=== PATIENT | male | born 1945 | race Caucasian/White ===

== ENCOUNTER 2020-06-28 23:54 | Emergency (ER) | payer MEDICARE, OTHER ==
[~2020-06-28] VITALS: Ht 177.8 cm; Wt 89.5 kg
[2020-06-29] MEDS ORDERED: normal saline 1000ML IV soln IVB ONE
[2020-06-29] MEDS: dextrose 5%-normal saline 1,000 ML IV SCH ×2 (00:20→02:43)
--- NOTE | 2020-06-29 00:20 | NUR ---
MD AWARE OF GLUCOSE 66 FROM 107 EMS. D5NS ORDERED INSTEAD OF NS BOLUS
[2020-06-29 00:24] LABS: BASOPHILS # (AUTO) 0.1 X10'3 (0-0.2); BASOPHILS % (AUTO) 0.7 % (0-1); EOSINOPHILS # (AUTO) 0.3 X10'3 (0-0.9); EOSINOPHILS % (AUTO) 4.3 % (0-6); HEMATOCRIT 37.2 % (42.0-52.0); HEMOGLOBIN 12.8 g/dl (14.0-17.9); MEAN CORPUSCULAR HEMOGLOBIN 31.4 PG (27.0-31.0); MEAN CORPUSCULAR HGB CONC 34.3 g/dL (33.0-36.5); MEAN CORPUSCULAR VOLUME 91.4 FL (78-98); MEAN PLATELET VOLUME 7.8 FL (7.4-10.4); MONOCYTES # (AUTO) 0.7 X10'3 (0-0.9); MONOCYTES % (AUTO) 9.6 % (2-12); NEUTROPHILS # (AUTO) 3.4 X10'3 (1.8-7.7); NEUTROPHILS % (AUTO) 45.4 % (42-75); PLATELET COUNT 297 X10'3 (140-440); RED BLOOD COUNT 4.07 X10'6 (4.70-6.10); WHITE BLOOD COUNT 7.4 X10'3 (4.5-11.0)
[2020-06-29 00:25] LABS: ALANINE AMINOTRANSFERASE 73 U/L (12-78); ALBUMIN 3.5 G/DL (3.4-5.0); ALBUMIN/GLOBULIN RATIO 1.3 (1.1-1.5); ALKALINE PHOSPHATASE 94 IU/L (46-116); ANION GAP 10 (8-16); ASPARTATE AMINO TRANSFERASE 46 U/L (10-37); BILIRUBIN,TOTAL 0.5 MG/DL (0.1-1.0); BLOOD UREA NITROGEN 8 MG/DL (7-18); BUN/CREATININE RATIO 8.2 (5.4-32.0); CALCIUM 8.4 MG/DL (8.5-10.1); CHLORIDE 106 MMOL/L (99-107); CREATININE 0.97 MG/DL (0.60-1.10); GLUCOSE 78 MG/DL (70-104); POTASSIUM 3.6 MMOL/L (3.5-5.1); SODIUM 141 MMOL/L (135-145); TOTAL CARBON DIOXIDE 25.2 MMOL/L (24-32); TOTAL PROTEIN 6.3 G/DL (6.4-8.2); eGFR 76 ML/MIN
[2020-06-29 00:28] LABS: TROPONIN I < 0.04 NG/ML (0.0-0.05)
[2020-06-29 00:29] LABS: ETHANOL < 0.010 GM/DL (0.0-0.010)
--- NOTE | 2020-06-29 01:20 | NUR ---
pt pulled iv out, new one initiated, RFA 20g. asypmtomatic
[2020-06-29 01:23] LABS: CLARITY,URINE CLEAR (Clear); COLOR,URINE YELLOW (Yellow); GLUCOSE, URINE 100 mg/dl (Neg); KETONES,URINE NEGATIVE (Neg); LEUKOCYTE ESTERASE ,URINE TRACE (Neg); NITRITES, URINE NEGATIVE (Neg); OCCULT BLOOD,URINE MODERATE (Neg); PH,URINE 5.5 (4.8-8.0); PROTEIN,URINE NEGATIVE (Neg); UROBILINOGEN,URINE 0.2 E.U/dL (0.2-1.0)
[2020-06-29 01:28] LABS: UA COLLECTION TYPE CLN CATCH MIDSTREAM
[2020-06-29 01:38] LABS: BACTERIA,URINE FEW /HPF (Neg); RBC,URINE 0-2 /HPF (0-2); SQUAMOUS EPITHELIAL CELL,UR FEW /LPF (FEW); WBC,URINE 0-4 /HPF (0-4)
[2020-06-29 01:55] LABS: URINE AMPHETAMINE SCREEN NEGATIVE (Neg); URINE BARBITUATE SCREEN NEGATIVE (Neg); URINE BENZODIAZEPINES SCREEN NEGATIVE (Neg); URINE CANNABINOID SCREEN NEGATIVE (Neg); URINE COCAINE SCREEN NEGATIVE (Neg); URINE METHADONE SCREEN NEGATIVE (Neg); URINE OPIATE SCREEN NEGATIVE (Neg); URINE PHENCYCLIDINE SCREEN NEGATIVE (Neg)
[2020-06-29] MEDS ORDERED: CefTRIAXone/D5W-Rocephin 1gm 50 ML IV ONE (02:30)
[2020-06-29] MEDS ORDERED: CEPH-571 PO (02:31)
[2020-06-29 03:40] VITALS: BP 107/70
== END 2020-06-29 03:41 | disposition home or self-care (01) ==
LOC: ER 23:54
DX: N39.0 Urinary tract infection, site not specified (principal); E11.9 Type 2 diabetes mellitus without complications; Z88.8 Allergy status to other drugs, medicaments and biological substances; Z79.899 Other long term (current) drug therapy
CPT/HCPCS: 36415; 70450; 71045; 80053; 80305; 80320; 81001; 82948; 84484; 85025; 87088; 93005; 96361; 96365; 99285; J0696; J7042

== ENCOUNTER 2025-06-05 12:18 | Inpatient (IN) | payer MEDICARE, OTHER ==
[~2025-06-05] VITALS: Ht 180.3 cm; Wt 82.0 kg
[~2025-06-05 12:18] MED LIST: CEPH-571 PO
[2025-06-05 14:40] VITALS: BP 100/65; PULSE 75; RESP 13; TEMP 97.5; O2SAT 99
[2025-06-05] MEDS ORDERED: potassium Cl 40MEQ/1/2NS 520ml 520 ML IV PRN (16:10)
[2025-06-05] MEDS ORDERED: mag hydrox/Alum hydrox/simeth 30ml oral suspension PO PRN (16:10)
[2025-06-05] MEDS ORDERED: magnesium hydroxide 30ml (MOM) UD suspension PO PRN (16:10)
[2025-06-05] MEDS ORDERED: magnesium Cl slow-release 64mg tablet PO PRN (16:10)
[2025-06-05] MEDS ORDERED: potassium Cl 20 mEq SR tablet PO PRN ×2 (16:10)
[2025-06-05] MEDS ORDERED: magnesium sulf-water 2g/50mL 50 ML IV PRN (16:10)
[2025-06-05] MEDS ORDERED: magnesium sulf-water 4G/100mL 100 ML IV PRN (16:10)
[2025-06-05] MEDS: PERFLUTREN PROTEIN-A MICROSPHR (Optison) 0.22 MG/ML 3ML VIAL IV ONE (16:15)
--- NOTE | 2025-06-05 16:34 | HISTORY AND PHYSICAL-Residence ---
History & Physical Providers to CC Resident Creating Document: TOMIRUTHANNES, MICHELE ~ History of Present Illness Reason for Admit\Complaint: Shortness of breath History of Present Illness 80-year-old male with history of congestive heart failure, chronic AFib, ischemic cardiomyopathy, CAD s/p CABG, aortic stenosis, diabetes mellitus type 2, COPD was transferred from [place] for management of acute on chronic systolic heart failure, as they did not have cardiology. He states that he went to [facility] as he was very weak and had shortness of breath. He has had shortness of breath for the past 3 months which has progressively worsened. He states that he uses BiPAP at home for COPD. He states having chronic dry cough. He reports having the flu for 2 weeks around 2 months ago. He denies swelling of legs, chest pain, palpitations. He can not walk more than 1 block without having shortness of breath and he endorses orthopnea. He denies abdominal pain, abdominal distention, nausea, vomiting, constipation, diarrhea, changes in appetite, fever, chills. 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 at the moment He lives at home with his and daughter He ambulates with the help of a cane Allergies: Coded Allergies: pregabalin (Unverified Allergy, Mild, 06/07/25) gabapentin (Verified Allergy, Unknown, 06/29/20) losartan (Verified Allergy, Unknown, 06/29/20) chlorhexidine (Unverified Adverse Reaction, Mild, 06/07/25) Uncoded Allergies: SALT PILLS (Allergy, Unknown, 06/29/20) Home Medications Home Medications Active Keflex (Cephalexin) 250 Mg Capsule 1 Cap PO BID 7 Days Past Medical History Past Medical History Congestive heart failure, LVEF of 50-55% in October 2023 Ischemic cardiomyopathy CAD s/p CABG Chronic AFib COPD Aortic stenosis Depression/anxiety Diabetes mellitus type 2 CKD Abdominal aortic aneurysm Vertigo Past Surgical History Surgical History Comment Sleeve gastrectomy Bilateral knee replacement Carpal tunnel surgery CAD s/p CABG 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 Past Social History Social History Comment He quit smoking 24 years ago, he used to smoke 1 pack a day for 40 years He denies alcohol and recreational drug use 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 Gastrointestinal: No Abdominal pain, vomiting,nausea,constipation,diarrhea. Normal appetite. No hematemesis or melena. Musculoskeletal: No pedal edema, No pain in bilateral lower legs. Integumentary: No change in skin, hair, nails. No swelling, bruising, abrasions Neurologic: No headache, neck pain, numbness or tingling of the extremities, Psychiatric: No delusions, depression, loss of interest in normal activity or change in sleep pattern, hallucinations, suicidal ideations Endocrine: Reports weakness, No polydipsia, polyuria, change in appetite, heat or cold intolerance, sweating, dry skin Hematological: No bleeding, petechiae, bruising Allergies: No asthma or urticaria Exam Vitals: Vital Signs Date Time Temp Pulse Resp B/P (MAP) Pulse Ox O2 Delivery O2 Flow Rate FiO2 06/05/25 14:40 97.5 75 13 100/65 (77) 99 Room Air General: Awake , alert, and oriented x4, resting comfortably in the bed, in no acute distress HEENT: Atraumatic, normocephalic, EOMI, anicteric sclera ; pink conjunctiva Neck: Trachea midline. Supple, full range of motion, no JVD Cardiac: Irregular rhythm, ejection systolic murmur at aortic region Respiratory: Diminished breath sounds bilaterally with bilateral bibasilar crackles no tachypnea, no wheezing , Chest wall is symmetric and without deformity. 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 No motor or sensory deficit, deep tendon reflexes normal, cerebellar intact. Cranial nerves II-XII intact. Skin: Warm and dry Advance Care Planning Advanced Care plannin - 30 Minutes (Full code) Additional Plan Acute on chronic heart failure with reduced ejection fraction ACC/AHA stage C Patient complains of shortness of Breath Saturating well on room air, he has no pedal edema BNP is 9472 Previous echo in October 2023 showed ejection fraction of 50-55% as per medical records from [facility] Echo at [facility] showed ejection fraction of 15-20% with severe global hypokinesis, RVSP 40-45 mmHg, mildly dilated LV, moderately dilated RV and mild aortic and mitral stenosis with mildly dilated ascending aorta of 4.2 cm. 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 Shin was consulted and he recommends to continue GDMT According to the patient, Dr. Lunsford plans to place AICD in the future, will consult him in the a.m Elevated troponin 2/[address] Patient has no chest pain Troponin is elevated 87 Follow troponin trend Tele shows AFib, rate controlled AFib, rate controlled Tele shows AFib, rate controlled Patient uses metoprolol succinate 25 mg at home Ryder Vasc score 6 Started Eliquis 5 mg b.i.d. Continue telemetry monitoring COPD, not in exacerbation Patient uses BiPAP at home for COPD Patient is saturating well on room air Chest x-ray shows cardiomegaly and vascular congestion Continue monitoring SUHAIL, possibly prerenal due to dehydration CKD stage 3a Vasomotor nephropathy Creatinine is elevated-1.31, baseline creatinine 0.97 BUN is elevated 32 BUN/Cr is elevated-24.4 EGFR is 53 Follow up urine lytes Patient is currently on diuresis, can not give fluids at the moment Strict I's and os Monitor BMP Diabetes mellitus type 2 HGB A1c is 8.2 Glucose is 122 On low-dose hyperglycemic hypoglycemic protocol Hyperphosphatemia Phosphorus is elevated-5.5 Started sevelamer 800 mg t.i.d. Abdominal aortic aneurysm CT imaging at [facility] showed aneurysm measuring 4.2 x 3.3 cm. Continue surveillance outpatient I spent a total of 18 minutes reviewing various resuscitative measures/ACP with the patient. The patient decided to be full code. Code status: Full code DVT prophylaxis: Eliquis 5 mg b.i.d. GI prophylaxis: Pantoprazole 40 mg Pain management: Tylenol p.r.n. Diet/nutrition: Carb controlled diet Prognosis: Guarded Disposition: Continue GDMT, IV Lasix 20 mg, strict I's and o's, PT eval and DC plan Resident MD attestation: The patient note has been reviewed and supervised by senior residents PGY-2/ PGY-3. Patient was seen, examined and discussed with attending physician, Dr. Raine Esparza MD Internal Medicine resident, PGY-1 Date of Service: Jun 05, 2025 Billing Provider: KATELYNN SOTO MD Common Visit Codes: [id number] INP/OBS CARE (HIGH) Secondary Visit Codes: [id number] CARE PLAN 30 MINUTES ES ESPARZA, RES Jun 05, 2025 16:34 KATELYNN SOTO MD Jun 11, 2025 14:02
[2025-06-05 16:43] LABS: MEAN PLATELET VOLUME 8.8 FL (7.4-10.4); RED CELL DISTRIBUTION WIDTH 16.6 % (11.5-14.5)
--- NOTE | 2025-06-05 16:51 | RADIOLOGY REPORT ---
CHEST RADIOGRAPH Indication: sob Technique: Single frontal view of the chest was obtained COMPARISON: CHEST,SINGLE VIEW on DOS: 06/29/20 FINDINGS: Lines and Tubes: None Lungs: Clear Pleura: No effusion. No pneumothorax. Cardiomediastinal contours: Cardiomegaly status post median sternotomy. Bones: Unremarkable IMPRESSION: 1. Cardiomegaly. hs:y
[2025-06-05 17:06] LABS: INR 1.9 INR
[2025-06-05] MEDS ORDERED: FURO20TA4 PO (17:10)
[2025-06-05 17:12] LABS: APTT 32 SECONDS (22-32)
[2025-06-05] MEDS ORDERED: METO-395 PO (17:17)
[2025-06-05] MEDS ORDERED: [UNRECOGNIZED DRUG - CODE] PO (17:17)
[2025-06-05] MEDS ORDERED: RAMI10CA78 PO (17:26)
[2025-06-05 17:27] LABS: CREATININE 1.31 MG/DL (0.60-1.10); PHOSPHORUS 5.5 MG/DL (2.3-4.5); PRO BRAIN NATRIURETIC PEPTIDE 9472 PG/ML (0-450); TOTAL CARBON DIOXIDE 27.2 MMOL/L (24-32); eCRCL 50 ML/MIN; eGFR 53 ML/MIN
[2025-06-05] MEDS ORDERED: TIRZ7.5P (17:27)
[2025-06-05] MEDS ORDERED: BUPR-480 PO (17:35)
[2025-06-05] MEDS ORDERED: ERGO125018 PO (17:35)
[2025-06-05] MEDS ORDERED: PANT40TA54 PO (17:35)
[2025-06-05] MEDS ORDERED: UMEC1DIS INH (17:35)
[2025-06-05] MEDS ORDERED: OXYC5TAB2 PO (17:35)
[2025-06-05] MEDS ORDERED: dextrose 50%-water 50ml dispensing syringe IV PRN ×2 (17:45)
[2025-06-05] MEDS ORDERED: glucagon, human recombinant 1mg kit SUBCUT PRN (17:45)
[2025-06-05] MEDS ORDERED: DEXTROSE 15 GM of carb/4 tabs (each vial/BOTTLE has 4 tablets) PO PRN ×2 (17:45)
--- NOTE | 2025-06-05 17:48 | CONSULTATION REPORT ---
Cardiac Consultation Report Providers to CC ~ Subjective Subjective CARDIOLOGY CONSULT: RECORDS REVIEWED I SPOKE TO THE PATIENT. THE PATIENT TELLS ME THAT DR. STEPHEN YESTERDAY ORDERED A LIFEVEST FOR HIM. TUESDAY DR. STEPHEN AND HE HAS NURSE PRACTITIONERS IN THE HOSPITAL WE WILL BE ON- CALL. PLEASE CONTACT HIM TO FOLLOW UP ON THE PATIENT IT APPEARS TO ME THEY PLAN TO PLACE AICD BY THE IN HIM IN THE FUTURE ACCORDING TO THE PATIENT. NOT CHARGE THE PATIENT: I WILL NOT BE SEEING THE PATIENT IN FOLLOW UP. I THINK IT IS MOST APPROPRIATE THAT DR. STEPHEN TAKES CARE OF THE PATIENT THEY HAVE THE REQUISITE SKILLS TO DO SO. Objective Vitals Vital Signs Date Time Temp Pulse Resp B/P (MAP) Pulse Ox O2 Delivery O2 Flow Rate FiO2 06/05/25 14:40 97.5 75 13 100/65 (77) 99 Room Air Lab Results: 06/05/25 1623 06/05/25 1623 Coagulation Studies Laboratory Tests Test 06/05/25 16:23 Prothrombin Time 17.9 SECONDS (9.0-12.0) H INR International Normalized Ratio 1.9 INR Activated Partial Thromboplast Time 32 SECONDS (22-32) Coagulation Comments ULICES FERMIN MD Jun 05, 2025 17:47
[2025-06-05 18:59] VITALS: RESP 14; O2SAT 98
[2025-06-05 20:00] VITALS: BP_SYST 107; BP_SYST 97; BP_DIAS 62; BP_DIAS 68; BP_DIAS 69; PULSE 93; PULSE 97; RESP 12; O2SAT 98
[2025-06-05] MEDS: K and/or MAG REPLACEMENT MC SCH (20:00)
[2025-06-05] MEDS: docusate sod 100mg capsule PO SCH (20:00)
[2025-06-05] MEDS ORDERED: heparin, porcine 5000 units/ml vial SQ SCH (20:00)
[2025-06-05] MEDS: INSULIN LISPRO 100 UNIT/ML INSULN.PEN MULTI-DOSE SQ SCH (21:00)
[2025-06-05] MEDS: sevelamer carbonate 800mg tablet PO SCH (21:24)
[2025-06-05 22:00] VITALS: BP 117/69; PULSE 93; RESP 18; TEMP 97.9; O2SAT 96
[2025-06-05] MEDS: guaiFENesin/DM 10ml UD oral syrup PO SCH (22:00)
[2025-06-06] VITALS (10 sets, daily range): BP systolic 95–135; BP diastolic 51–69; PULSE 67–92; RESP 15–23; TEMP 97.4–97.8; O2SAT 94–100
[2025-06-06 07:26] LABS: MEAN PLATELET VOLUME 8.9 FL (7.4-10.4); RED CELL DISTRIBUTION WIDTH 16.6 % (11.5-14.5)
[2025-06-06] MEDS: pantoprazole 40mg Tablet.DR PO SCH (07:29)
[2025-06-06] MEDS: metoprolol succinate 25mg (24-HOUR) SR. Tablet PO SCH (07:29)
[2025-06-06] MEDS: EMPAGLIFLOZIN 10 MG TABLET PO SCH (07:31)
[2025-06-06] MEDS: BUPROPION HCL 150MG XL 24 HR 150 MG TAB PO SCH (07:47)
[2025-06-06] MEDS ORDERED: APIX5TAB5 PO (07:48)
[2025-06-06] MEDS ORDERED: FERR325T28 PO (07:48)
[2025-06-06 07:54] LABS: CHOL/HDL RATIO 2.6 (0.00-4.99); CREATININE 1.50 MG/DL (0.60-1.10); LDL CHOLESTEROL 43 MG/DL (50-100); TOTAL CARBON DIOXIDE 28.0 MMOL/L (24-32); eCRCL 43 ML/MIN; eGFR 45 ML/MIN
[2025-06-06] MEDS ORDERED: BUSP10TA11 PO (07:57)
[2025-06-06] MEDS ORDERED: PRED5DRO23 LEFTEYE (07:57)
[2025-06-06] MEDS ORDERED: ATOR40TA PO (07:57)
[2025-06-06] MEDS ORDERED: VENL25TA48 PO (07:57)
--- NOTE | 2025-06-06 10:06 | ELECTROCARDIOGRAPH REPORT ---
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 DANIELLE Martinez Measurements Intervals Patterson Rate: 83 P: 0 CO: 0 QRS: 83 QRSD: 108 T: 88 QT: 454 QTc: 534 Interpretive Statements Atrial fibrillation Borderline right axis deviation Nonspecific T abnormalities, lateral leads Prolonged QT interval Electronically Signed On 06-06-2025 16:53:[address] DANIELLE Martinez Please click the below link to view image of tracing.
[2025-06-06 11:09] LABS: LEUKOCYTE ESTERASE ,URINE NEGATIVE (Neg); NITRITES, URINE NEGATIVE (Neg); OCCULT BLOOD,URINE NEGATIVE (Neg)
[2025-06-06 11:16] LABS: OSMOLALITY UA 560.0 MOSM/K (50-1400)
[2025-06-06 11:17] LABS: UA COLLECTION TYPE CLN CATCH MIDSTREAM
[2025-06-06 11:22] LABS: CREATININE,URINE RANDOM 81.0 MG/DL
[2025-06-06 11:26] LABS: SQUAMOUS EPITHELIAL CELL,UR FEW /LPF (FEW)
[2025-06-06 11:32] LABS: PHOSPHORUS 4.6 MG/DL (2.3-4.5)
--- NOTE | 2025-06-06 12:31 | PROGRESS NOTE- Residence ---
Progress Note - Resident Providers to CC Resident Creating Document: ES ESPARZA RES ~ Antibiotic Timeout Antibiotic Ordered?: No Subjective Patient was seen and examined bedside. He was comfortably sitting on the chair. He states that the shortness of breath has improved. He has no swelling of legs and is able to walk around. He denies chest pain, palpitations or any other medical complaints. He has a life vest in place which was delivered from [facility]. Objective Vital Signs Date Time Temp Pulse Resp B/P (MAP) Pulse Ox O2 Delivery O2 Flow Rate FiO2 06/06/25 08:00 20 99 Room Air 06/06/25 07:30 67 06/06/25 06:00 97.5 106/52 (70) Result Diagram: 06/06/25 0651 06/06/25 0651 Awake , alert, and oriented x4, sitting comfortably in the chair, in no acute distress, LifeVest in place HEENT: Atraumatic, normocephalic, EOMI, anicteric sclera ; pink conjunctiva Neck: Trachea midline. Supple, full range of motion, no JVD Cardiac: Irregular rhythm, ejection systolic murmur at aortic region Respiratory: Diminished breath sounds bilaterally with bibasilar crackles, no tachypnea, no wheezing ,rub, Chest wall is symmetric and without deformity. 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 No motor or sensory deficit, deep tendon reflexes normal, cerebellar intact. Cranial nerves II-XII intact. Skin: Warm and dry Coagulation Studies Laboratory Tests Test 06/05/25 16:23 Prothrombin Time 17.9 SECONDS (9.0-12.0) H INR International Normalized Ratio 1.9 INR Activated Partial Thromboplast Time 32 SECONDS (22-32) Coagulation Comments Assessment Assessment 80-year-old male with history of congestive heart failure, chronic AFib, ischemic cardiomyopathy, CAD s/p CABG, aortic stenosis, diabetes mellitus type 2, COPD was transferred from [place] [facility] for management of acute on chronic heart failure with reduced ejection fraction. Plan Plan Acute on chronic heart failure with reduced ejection fraction ACC/AHA stage C Shortness of breath has improved Saturating well on room air, he has no pedal edema Blood pressure has stabilized- 135/51 BNP was 9472 Previous echo in October 2023 showed ejection fraction of 50-55% as per medical records from [facility] Echo shows LVEF of 10%, RVSP 54 mmHg, dilated RV, LA and RA, moderate mitral regurgitation and mild tricuspid regurgitation Chest x-ray shows cardiomegaly Patient uses ramipril 10 mg, metoprolol succinate 25 mg, Lasix 20 mg at home Continue lisinopril 20 mg and metoprolol succinate 25 mg Continue spironolactone 25 mg and Jardiance 10 mg Consider holding metoprolol succinate, spironolactone if blood pressure is soft Patient takes Lasix 20 mg at home Continue IV Lasix 20 mg daily, negative balance of 300 mL in past 12 hours Continue strict I's and os Fluid restriction to 1.5 L per day Patient has dry cough, continue Robitussin DM 15 ml daily 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 Shin was consulted and he recommends to continue GDMT Patient received life vest yesterday which was sent from [facility] According to the patient, Dr. Lunsford plans to place AICD in the future Dr. Lunsford was consulted, awaiting recommendations Elevated troponin 2/2 Type 2 NC Patient has no chest pain Troponins are 87, 86, 89 Tele shows AFib, rate controlled AFib, rate controlled Ryder Vasc score 6 Tele shows AFib, rate controlled Continued home medication metoprolol succinate 25 mg Continue Eliquis 5 mg b.i.d. COPD, not in exacerbation Patient uses BiPAP at home for COPD Patient is saturating well on room air Chest x-ray shows cardiomegaly and vascular congestion DuoNebs p.r.n. SUHAIL, possibly prerenal due to dehydration CKD stage 3a Vasomotor nephropathy Creatinine has up trended to 1.5, baseline creatinine 0.97 BUN is elevated 30 BUN/Cr is normal-20 EGFR is 53 Fena- 0.6%, suggesting prerenal SUHAIL Patient is currently on diuresis, can not give fluids at the moment Negative fluid balance of 300 mL in the past 12 hours Continue strict I's and os Monitor BMP Diabetes mellitus type 2 HGB A1c is 8.2 Glucose is controlled Goal of glucose levels inpatient is 140-180 On low-dose hyperglycemic hypoglycemic protocol Hyperphosphatemia Phosphorus has downtrended from 5.5 to 4.6 Continue sevelamer 800 mg t.i.d. Abdominal aortic aneurysm CT imaging at [facility] showed aneurysm measuring 4.2 x 3.3 cm. Continue surveillance outpatient Code status: Full code DVT prophylaxis: Eliquis 5 mg b.i.d. GI prophylaxis: Pantoprazole 40 mg Pain management: Tylenol p.r.n. Diet/nutrition: Carb controlled diet Prognosis: Guarded Disposition: Continue GDMT, IV Lasix 20 mg, strict I's and o's, patient has LifeVest, awaiting Dr. Lunsford's recommendation, PT eval and DC plan Resident MD attestation: The patient note has been reviewed and supervised by senior residents PGY-2/ PGY-3. Patient was seen, examined and discussed with attending physician, Dr. Raine Esparza MD Internal Medicine resident, PGY-1 Date of Service: Jun 06, 2025 Billing Provider: KATELYNN SOTO MD Common Visit Codes: [id number] INP/OBS CARE(HIGH) ES ESPARZA, RES Jun 06, 2025 12:31 KATELYNN SOTO MD Jun 11, 2025 14:03
--- NOTE | 2025-06-06 16:06 | CONSULTATION REPORT ---
History of Present Illness Providers to CC CC: SHIKHA LUNSFORD MD ~ Reason for Admit\Admit Dx: Cardiology consultation History of Present Illness Patient presented as a transfer from [facility] secondary to heart failure with reduced ejection fraction. He had presented on the secondary to worsening shortness for breath. States he had a recent admit to hospital in [place] for similar symptoms. Recent flu/COVID about three weeks ago. He complains of orthopnea. He has some dyspnea on exertion which has significantly improved. No chest pain or pressure. States overall his symptoms have improved significantly since his admission to [facility]. He has not extensive past history including coronary artery disease with five- vessel CABG in 2010. Cardiac catheterization in 2017 with stent to the OM/left circumflex. He has history of atrial fibrillation on oral anticoagulation, aortic stenosis, diabetes with hemoglobin A1c 8.2, COPD. His ejection fraction was found to be around 10%. Not previously on guideline directed medical therapy. Follows with [facility]iology at the [facility] with Dr. Nunez. He is also seeing a manager knowledge about a year and a half ago in [place]. Allergies: Coded Allergies: gabapentin (Verified Allergy, Unknown, 06/29/20) losartan (Verified Allergy, Unknown, 06/29/20) Uncoded Allergies: SALT PILLS (Allergy, Unknown, 06/29/20) Home Medications Home Medications Active Effexor* (Venlafaxine HCl) 25 Mg Tablet 4 Tab PO BID 30 Days Prednisolone Acet 1% Eye Drop (Prednisolone Acetate/Pf) 1 % Drops.susp 1 Drop LEFTEYE Q6H 30 Days Buspar* (Buspirone HCl) 10 Mg Tablet 4.5 Tab PO BID 30 Days Lipitor* (Atorvastatin Calcium) 40 Mg Tablet 1 Tab PO HS 30 Days Ferrous Sulfate* (Ferrous Sulfate) 325 Mg Tablet 1 Tab PO DAILY 30 Days Eliquis (Apixaban) 5 Mg (74 Tabs) Tab.ds.pk 1 Tab PO BID 30 Days Keflex (Cephalexin) 250 Mg Capsule 1 Cap PO BID 7 Days Reported Bupropion Xl (Bupropion HCl) 300 Mg Tab.er.24h 1 Tab PO DAILY Vitamin D2 (Ergocalciferol (Vitamin D2)) 1,250 Mcg (77981 Unit) Capsule 1 Cap PO Q7D Anoro Ellipta 62.5-25 Mcg INH (Umeclidinium Brm/Vilanterol Tr) 62.5 Mcg-25 Mcg/Actuation Disk.w.dev 1 Puffs INH DAILY Pantoprazole Sodium 40 Mg Tablet.dr 1 Tab PO DAILY Roxicodone (Oxycodone Hcl) 5 Mg Tablet 1 Tab PO Q6H PRN Ramipril 10 Mg Capsule 1 Cap PO DAILY Diphenoxylate-Atrop 2.5-0.025 (Diphenoxylate HCl/Atropine) 2.5 Mg-0.025 Mg Tablet 2 Tab PO Q6H Metoprolol Succinate 25 Mg Tab.sr.24h 12.5 Mg PO DAILY Past Medical History Medical History Comment Coronary artery disease with history of five-vessel CABG in 2010 and PCI in 2017 Atrial fibrillation New onset heart failure with reduced ejection fraction Abdominal aortic aneurysm measuring 4.2 cm Diabetes mellitus with hemoglobin A1c 8.2 COPD Sleep apnea on CPAP Past Surgical History Surgical History Comment Five five-vessel CABG with WALDRON to LAD, SVG to diagonal, SVG to ramus and OM, SVG to right posterolateral Gastric sleeve procedure Carpal tunnel 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 Goes between living with his daughter in [place] and his son in [place] Physical Exam Last Vital Signs Recorded: RN Vital Signs have been reviewed: Yes, Temperature: 97.8, Source: Temporal, Heart Rate: 85, Respiratory Rate: 21, BP: 113/67, Pulse Oximetry: 100, Weight: 82.000 Physical Exam General: Awake, alert, oriented. No apparent distress Neck: Supple. Normal range of motion. No JVD Respiratory: Lungs are clear to auscultation bilaterally. No respiratory distress. Chest: Normal shape and size. No accessory muscle use. He is wearing a LifeVest Cardiovascular: Regular rate and rhythm. S1-S2. No murmur, gallop, rub. Extremities: No lower extremity edema, cyanosis or clubbing. Neurologic: Alert and oriented x4. Nonfocal Psychiatric: Normal mood and affect. Skin: Normal color. Warm and dry. Review of Systems ROS Patient has symptoms of dyspnea on exertion, orthopnea. No shortness a breath at rest. No chest pain or pressure. No dizziness, lightheadedness or syncope. Was asked, but otherwise denies review of systems. Results Echocardiogram Echocardiogram Preliminary echocardiogram: Accession No. 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 Patient Location: [facility] Heart Rate: 80-90 bpm Rhythm: ATRIAL FIBRILLATION Indications SHORT OF BREATH DIZZINESS Networking Technician: Izaiah Lunsford MD Previous echo: NONE AVAILABLE 2D Dimensions RVDd 4.5 cm LA Diam 6.9 cm LA Major 6.8 cm RA Major 6.4 cm RA Minor 5.3 cm LVOT Diameter 2.57 (1.8-2.4cm) CO 3.5 L/min M-Mode Dimensions Left Atrium(MM) 5.95 (2.5-4.0cm) IVSd 1.10 (0.7-1.1cm) LVDd 6.59 (4.0-5.6cm) Aortic Root 4.16 (2.2-3.7cm) PWd 1.24 (0.7-1.1cm) Aortic Cusp Exc 2.32 (1.5-2.0cm) IVSs 1.01 cm MV EPSS 2.1 (<0.5cm) LVDs 6.00 (2.0-3.8cm) FS (%) 9 % PWs 1.33 cm ESV(Teich) 179.7 ml LVEF(%) 19 (>50%) Aortic Valve AoV Peak Forrest. 255.5 cm/s AoV VTI 48.0 cm AO Peak GR. 26.1 mmHg AO Mean GR. 14 mmHg LVOT VTI 11.60 cm LVOT Peak Forrest. 53.7 cm/s FELIPE(VTI)/BSA 1.25 cm2/m2 FELIPE (VTI) 1.25 cm2 AI P 1/2 Time 344 ms AV DI 0.24 % Mitral Valve MV Peak Gr. 5 mmHg MV PHT 80 ms MVA (PHT) 2.75 cm2 MV VMax 110.5 cm/s Tricuspid Valve TR P. Velocity 333 cm/s RAP ESTIMATE 10 mmHg TR Peak Gr. 44 mmHg RVSP 54 mmHg LEFT VENTRICLE Normal LV size and wall thickness. Overall systolic function is normal. LVEF is 10%. RIGHT VENTRICLE RV is moderately increased in size with severely reduced function. Elevated right heart pressures as noted above. ATRIA Left atrium is severely dilated. Right atrium is severely dilated. AORTIC VALVE Trileaflet AV appears severely calcified and sclerotic without stenosis. Moderate insufficiency. MITRAL VALVE Mild annular calcification without stenosis. Moderate regurgitation. TRICUSPID VALVE TV appears structurally normal with mild regurgitation. PULMONIC VALVE Normal PV without stenosis, physiologic insufficiency. GREAT VESSELS Aortic root is normal in size. Ascending aorta is normal in size. PERICARDIUM Normal pericardium. No effusion. Other Information Study Quality: Adequate Diagram Lab Result Diagram: 06/06/25 0651 06/06/25 0651 Assessment/Plan Additional Plan Patient presented as a transfer for Cardiology consultation secondary to heart failure with reduced ejection fraction. The following is his problem list: Heart failure with reduced ejection fraction, acute Previous echocardiogram in 2023 demonstrated preserved EF. Now with LVEF 10%. Ischemic versus viral induced. Does have history of coronary artery disease and recent viral infection which could be the underlying etiology. Recommend outpatient stress test --continue metoprolol succinate 25 mg daily --continue Jardiance 10 mg daily --continue spironolactone 25 mg daily --consider transition from lisinopril to Entresto --continue with LifeVest --close outpatient follow up for up titration of guideline directed medical therapy. Moderate MR/AI --diuretics to keep euvolemic Atrial fibrillation --continue home oral anticoagulation --rate control with Metoprolol as above abdominal aortic aneurysm Measuring 4.[address] scan --recommend outpatient follow up History of coronary artery disease --no current chest pain. --Recommend statin keep LDL less than 55 Diabetes mellitus Hemoglobin A1c 8.2 --management per hospitalist Case discussed with Dr. Cortez Lunsford who is in agreement with the above. [facility] Keep follow up with Dr. Nunez versus community referral. Supervising MD Supervising Physician: VARGHESE Daniels NP Jun 06, 2025 16:06
--- NOTE | 2025-06-06 17:26 | CARDIOLOGY REPORT ---
APPROVED REPORT EXAM: Comprehensive 2D, Doppler, and color-flow Echocardiogram. Patient Location: [facility] Heart Rate: 80-90 bpm Rhythm: ATRIAL FIBRILLATION Indications SHORT OF BREATH DIZZINESS Film Sound Coordinator: Izaiah Lunsford MD Previous echo: NONE AVAILABLE 2D Dimensions RVDd 4.5 cm LA Diam 6.9 cm LA Major 6.8 cm RA Major 6.4 cm RA Minor 5.3 cm LVOT Diameter 2.57 (1.8-2.4cm) CO 3.5 L/min M-Mode Dimensions Left Atrium(MM) 5.95 (2.5-4.0cm) IVSd 1.10 (0.7-1.1cm) LVDd 6.59 (4.0-5.6cm) Aortic Root 4.16 (2.2-3.7cm) PWd 1.24 (0.7-1.1cm) Aortic Cusp Exc 2.32 (1.5-2.0cm) IVSs 1.01 cm MV EPSS 2.1 (<0.5cm) LVDs 6.00 (2.0-3.8cm) FS (%) 9 % PWs 1.33 cm ESV(Teich) 179.7 ml LVEF(%) 19 (>50%) Aortic Valve AoV Peak Forrest. 255.5 cm/s AoV VTI 48.0 cm AO Peak GR. 26.1 mmHg AO Mean GR. 14 mmHg LVOT VTI 11.60 cm LVOT Peak Forrest. 53.7 cm/s FELIPE(VTI)/BSA 1.25 cm2/m2 FELIPE (VTI) 1.25 cm2 AI P 1/2 Time 344 ms AV DI 0.24 % Mitral Valve MV Peak Gr. 5 mmHg MV PHT 80 ms MVA (PHT) 2.75 cm2 MV VMax 110.5 cm/s Tricuspid Valve TR P. Velocity 333 cm/s RAP ESTIMATE 10 mmHg TR Peak Gr. 44 mmHg RVSP 54 mmHg LEFT VENTRICLE Normal LV size and wall thickness. Overall systolic function is severely reduced. LVEF is 10%. RIGHT VENTRICLE RV is moderately increased in size with severely reduced function. Elevated right heart pressures with an RVSP of 54 mmHg. ATRIA Left atrium is severely dilated. Right atrium is severely dilated. AORTIC VALVE Trileaflet AV appears severely calcified and sclerotic without stenosis. Moderate insufficiency. MITRAL VALVE Mild annular calcification without stenosis. Moderate regurgitation. TRICUSPID VALVE TV appears structurally normal with mild regurgitation. PULMONIC VALVE Normal PV without stenosis, physiologic insufficiency. GREAT VESSELS Aortic root is normal in size. Ascending aorta is normal in size. PERICARDIUM Normal pericardium. No effusion. Other Information Study Quality: Adequate Conclusion Normal LV size and wall thickness. Overall systolic function is severely reduced. LVEF is 10%. RV is moderately increased in size with severely reduced function. Elevated right heart pressures with an RVSP of 54 mmHg. Left atrium is severely dilated. Right atrium is severely dilated. Trileaflet AV appears severely calcified and sclerotic without stenosis. Moderate insufficiency. Mild annular calcification without stenosis. Moderate regurgitation. TV appears structurally normal with mild regurgitation. Normal pericardium. No effusion.
[2025-06-06] MEDS: ondansetron/PF 4mg/2ml inj IV PRN (18:44)
[2025-06-07] VITALS (21 sets, daily range): BP systolic 78–110; BP diastolic 44–68; PULSE 62–98; RESP 14–22; TEMP 97–98; O2SAT 95–99
[2025-06-07 07:22] LABS: MEAN PLATELET VOLUME 8.7 FL (7.4-10.4); RED CELL DISTRIBUTION WIDTH 16.4 % (11.5-14.5)
[2025-06-07 07:29] LABS: CREATININE 1.55 MG/DL (0.60-1.10); TOTAL CARBON DIOXIDE 29.5 MMOL/L (24-32); eCRCL 42 ML/MIN; eGFR 44 ML/MIN
[2025-06-07] MEDS: metoprolol succinate 25mg (24-HOUR) SR. Tablet PO SCH (08:00)
[2025-06-07] MEDS ORDERED: metoprolol succinate 25mg (24-HOUR) SR. Tablet PO SCH (08:00)
[2025-06-07] MEDS ORDERED: TRAZ-251 PO (11:36)
[2025-06-07] MEDS: normal saline 500ML IV soln IV ONE (15:15)
[2025-06-07] MEDS: midodrine 5mg tablet PO SCH (17:22)
--- NOTE | 2025-06-07 17:48 | PROGRESS NOTE- Residence ---
Progress Note - Resident Providers to CC Resident Creating Document: JOHN FORD CC: KATELYNN SOTO MD ~ Antibiotic Timeout Antibiotic Ordered?: No Subjective Patient was seen and examined bedside. He reports to be feeling a lot better, with improved shortness of breaths and edema. He has been able to walk with less difficulty. He has been wearing his LifeVest Patient reports that he got bypass surgery around 2011 and he also got a coronary stent in 2016. Objective Vital Signs Date Time Temp Pulse Resp B/P (MAP) Pulse Ox O2 Delivery O2 Flow Rate FiO2 06/07/25 16:29 89 16 98 BiPAP+ 2 28 06/07/25 11:45 110/50 (70) 06/07/25 11:00 97.2 Result Diagram: 06/07/2563206/07/25632 General: awake, alert oriented to place, time, and person HEENT: No pallor present, no icterus, moist mucous membranes Neck: No masses and tenderness Resp: Unlabored. Lungs clear to auscultation bilaterally. Chest: Normal expansion Cardiovascular: Regular Rate and rhythm, normal S1 and S2 without murmur, rub or gallop Abdomen: Soft and nontender, no organomegaly, no guarding and rigidity, bowel sounds present Neuro: No focal weakness in the upper and lower limb muscles, power of the muscles 5/5 bilateral upper and lower extremities, normal reflexes bilaterally. Cranial nerves intact Extremities: No cyanosis,clubbing or edema Skin: Warm and Dry. No lesions Psych: Normal affect Coagulation Studies Laboratory Tests Test 06/05/25 16:23 Prothrombin Time 17.9 SECONDS (9.0-12.0) H INR International Normalized Ratio 1.9 INR Activated Partial Thromboplast Time 32 SECONDS (22-32) Coagulation Comments Assessment Assessment 80-year-old male with history of congestive heart failure, chronic AFib, ischemic cardiomyopathy, CAD s/p CABG, aortic stenosis, diabetes mellitus type 2, COPD was transferred from [place] for management of acute on chronic heart failure with reduced ejection fraction. Plan Plan Acute on chronic heart failure with reduced ejection fraction ACC/AHA stage C, class D Shortness of breath has improved Saturating well on room air, he has no pedal edema Blood pressure has been soft today, with systolic BP below 100 Previous echo in October 2023 showed ejection fraction of 50-55% as per medical records from [place] Echo shows LVEF of 10%, RVSP 54 mmHg, dilated RV, LA and RA, moderate mitral regurgitation and mild tricuspid regurgitation Chest x-ray shows cardiomegaly Patient uses ramipril 10 mg, metoprolol succinate 25 mg, Lasix 20 mg at home Decrease lisinopril to 10 mg and metoprolol succinate to 12.5 mg Decrease spironolactone to 12.5 mg Continue Jardiance 10 mg Will Consider holding lisinopril, metoprolol succinate, spironolactone tomorrow if blood pressure is soft Patient takes Lasix 20 mg at home Hold Lasix 20 mg for now Continue strict I's and os Fluid restriction to 1.5 L per day Continue Robitussin DM 15 ml daily 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 Daniels recommended outpatient Lexiscan Continue LifeVest Elevated troponin 2/2 Type 2 ME Patient has no chest pain Troponins are 87, 86, 89 Tele shows AFib, rate controlled AFib, rate controlled Ryder Vasc score 6 Tele shows AFib, rate controlled Continued home medication metoprolol succinate, decreased as above Continue Eliquis 5 mg b.i.d. COPD, not in exacerbation Patient uses BiPAP at home for COPD Patient is saturating well on room air Chest x-ray shows cardiomegaly and vascular congestion DuoNebs p.r.n. SUHAIL, possibly prerenal due to dehydration CKD stage 3a Vasomotor nephropathy Creatinine is still around 1.5 Fena- 0.6%, suggesting prerenal SUHAIL Holding Lasix as above Continue strict I's and os Monitor BMP Diabetes mellitus type 2 HGB A1c is 8.2 Glucose is controlled Goal of glucose levels inpatient is 140-180 On low-dose hyperglycemic hypoglycemic protocol Hyperphosphatemia Phosphorus has downtrended from 5.5 to 4.6 Continue sevelamer 800 mg t.i.d. Abdominal aortic aneurysm CT imaging at [place] showed aneurysm measuring 4.2 x 3.3 cm. Continue surveillance outpatient Code status: Full code DVT prophylaxis: Eliquis 5 mg b.i.d. GI prophylaxis: Pantoprazole 40 mg Pain management: Tylenol p.r.n. Diet/nutrition: Carb controlled diet Prognosis: Guarded Disposition: Continue medical management. Anticipated discharge tomorrow if blood pressure stabilizes Resident MD attestation: Patient has been discussed in detail with senior resident (PGY-3), as well as attending physician. Dr. Raine Oneill MD Internal Medicine Resident PGY-2 Date of Service: Jun 07, 2025 Billing Provider: KATELYNN SOTO MD Common Visit Codes: [id number] INP/OBS CARE(HIGH) JOHN FORD Jun 07, 2025 17:48 KATELYNN SOTO MD Jun 11, 2025 14:03
[2025-06-07] MEDS: busPIRone 15mg tablet PO SCH (21:07)
[2025-06-08] VITALS (14 sets, daily range): BP systolic 83–110; BP diastolic 52–68; PULSE 65–85; RESP 15–20; TEMP 97.2–98.4; O2SAT 93–99
[2025-06-08 05:54] LABS: MEAN PLATELET VOLUME 8.9 FL (7.4-10.4); RED CELL DISTRIBUTION WIDTH 16.1 % (11.5-14.5)
[2025-06-08 06:09] LABS: CREATININE 1.85 MG/DL (0.60-1.10); TOTAL CARBON DIOXIDE 30.9 MMOL/L (24-32); eCRCL 35 ML/MIN; eGFR 36 ML/MIN
[2025-06-08] MEDS: ipratropium/albuterol 3ml nebule NEB PRN (08:21)
--- NOTE | 2025-06-08 15:37 | PROGRESS NOTE- Residence ---
Progress Note - Resident Providers to CC Resident Creating Document: ES ESPARZA RES ~ Antibiotic Timeout Antibiotic Ordered?: No Subjective Patient was seen and examined bedside. He is comfortably resting well in bed and not in distress. He denies chest pain, palpitations, fever, chills. He reports shortness of breath at night and was on BiPAP. There is no swelling of legs. He reports dizziness with history of vertigo. Objective Vital Signs Date Time Temp Pulse Resp B/P (MAP) Pulse Ox O2 Delivery O2 Flow Rate FiO2 06/08/25 14:49 80 93/56 (68) 83 85/53 (64) 06/08/25 11:00 97.5 16 98 Nasal Cannula 2.0 06/08/25 08:24 21 Result Diagram: 06/08/25 0518 06/08/25 0518 Awake , alert, and oriented x4, sitting comfortably in the chair, in no acute distress, LifeVest in place HEENT: Atraumatic, normocephalic, EOMI, anicteric sclera ; pink conjunctiva Neck: Trachea midline. Supple, full range of motion, no JVD Cardiac: Regular rate and rhythm, ejection systolic murmur heard at aortic region Respiratory: Equal breath sounds bilaterally, no tachypnea, no wheezing ,rub, rales. Chest wall is symmetric and without deformity. 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 No motor or sensory deficit, deep tendon reflexes normal, cerebellar intact. Cranial nerves II-XII intact. Skin: Warm and dry Coagulation Studies Laboratory Tests Test 06/05/25 16:23 Prothrombin Time 17.9 SECONDS (9.0-12.0) H INR International Normalized Ratio 1.9 INR Activated Partial Thromboplast Time 32 SECONDS (22-32) Coagulation Comments Assessment Assessment 80-year-old male with history of congestive heart failure, chronic AFib, ischemic cardiomyopathy, CAD s/p CABG, aortic stenosis, diabetes mellitus type 2, COPD was transferred from [place] for management of acute on chronic heart failure with reduced ejection fraction. Plan Plan Acute on chronic heart failure with reduced ejection fraction, improving ACC/AHA stage C, class D Shortness of breath has improved He is saturating well on 2 L O2 NC Blood pressure is on the soft side, lisinopril was held in the a.m Previous echo in October 2023 showed ejection fraction of 50-55% as per medical records from [place] Echo shows LVEF of 10%, RVSP 54 mmHg, dilated RV, LA and RA, moderate mitral regurgitation and mild tricuspid regurgitation Chest x-ray shows cardiomegaly Patient uses ramipril 10 mg, metoprolol succinate 25 mg, Lasix 20 mg at home Decreased lisinopril from 10 mg to 5 mg Continue metoprolol succinate 12.5 mg Continue spironolactone 12.5 mg Continue Jardiance 10 mg Orthostatic vitals negative Continue midodrine 5 mg Will Consider holding lisinopril, metoprolol succinate, spironolactone tomorrow if blood pressure is soft Consider transition from lisinopril to Entresto if blood pressures remain soft Patient takes Lasix 20 mg at home Held Lasix Positive fluid balance of 200 mL, Continue strict I's and os Fluid restriction to 1.5 L per day 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 Lunsford recommended outpatient Lexiscan Continue LifeVest Elevated troponin 2/2 Type 2 OR Patient has no chest pain Troponins were 87, 86, 89 Tele shows AFib, rate controlled AFib, rate controlled Ryder Vasc score 6 Tele shows AFib, rate controlled Patient uses metoprolol succinate 25 at home Continued metoprolol succinate 12.5 mg Continue Eliquis 5 mg b.i.d. COPD, not in exacerbation Patient uses BiPAP at home for COPD Patient is saturating well on 2 L O2 NC Chest x-ray (06/05/25) showed cardiomegaly and vascular congestion Held Lasix in view of soft blood pressure DuoNebs p.r.n. SUHAIL, possibly prerenal due to dehydration CKD stage 3a Vasomotor nephropathy Creatinine has up trended to 1.85 Fena- 0.6%, suggesting prerenal SUHAIL Held home medication Lasix 20 mg Positive fluid balance of 200 mL in last 12 hours, Continue strict I's and os Monitor BMP Certified Physician'S Assistant, Dr. Young was consulted, awaiting recommendations Diabetes mellitus type 2 HGB A1c is 8.2 Glucose is controlled Goal of glucose levels inpatient is 140-180 On Lantus 8 units h.s. On low-dose hyperglycemic hypoglycemic protocol Hyperphosphatemia Phosphorus has downtrended to 4.6 Continue sevelamer 800 mg t.i.d. Monitor phosphorus Abdominal aortic aneurysm CT imaging at [place] showed aneurysm measuring 4.2 x 3.3 cm. Continue surveillance outpatient Code status: Full code DVT prophylaxis: Eliquis 5 mg b.i.d. GI prophylaxis: Pantoprazole 40 mg Pain management: Tylenol p.r.n. Diet/nutrition: Regular diet Prognosis: Guarded Disposition: Monitor blood pressure and creatinine, awaiting Dr. Young recommendations, LifeVest in place Resident MD attestation: The patient note has been reviewed and supervised by senior residents PGY-2/ PGY-3. Patient was seen, examined and discussed with attending physician, Dr. Raine Esparza MD Internal Medicine resident, PGY-1 Date of Service: Jun 08, 2025 Billing Provider: KATELYNN SOTO MD Common Visit Codes: [id number] INP/OBS CARE(HIGH) ES ESPARZA, RES Jun 08, 2025 15:37 KATELYNN SOTO MD Jun 11, 2025 14:03
--- NOTE | 2025-06-08 17:43 | CONSULTATION REPORT ---
Consult Providers to CC ~ History of Present Illness Reason for Admit\Complaint: Shortness of breath History of Present Illness 80-year-old male with advanced systolic heart failure (EF ?10%), chronic atrial fibrillation, ischemic cardiomyopathy (s/p CABG 2010, stent 2016), aortic stenosis, type 2 diabetes (A1c 8.2), COPD (on home BiPAP), and multiple comorbidities, transferred for management of acute on chronic systolic heart failure. He presents with progressive dyspnea (worse over 3 months), new orthopnea, chronic dry cough, but no leg swelling, chest pain, or palpitations. He is on SGLT2 inhibitor and multiple other medications. Labs show mild SUHAIL on CKD (baseline Cr unknown, current Cr 1.5, BUN 28), mild hyponatremia, and no significant proteinuria or hematuria. Urine studies suggest pre-renal etiology. Allergies: Coded Allergies: pregabalin (Unverified Allergy, Mild, 06/07/25) gabapentin (Verified Allergy, Unknown, 06/29/20) losartan (Verified Allergy, Unknown, 06/29/20) chlorhexidine (Unverified Adverse Reaction, Mild, 06/07/25) Uncoded Allergies: SALT PILLS (Allergy, Unknown, 06/29/20) Home Medications Home Medications Active Effexor* (Venlafaxine HCl) 25 Mg Tablet 4 Tab PO BID 30 Days Prednisolone Acet 1% Eye Drop (Prednisolone Acetate/Pf) 1 % Drops.susp 1 Drop LEFTEYE Q6H 30 Days Buspar* (Buspirone HCl) 10 Mg Tablet 4.5 Tab PO BID 30 Days Lipitor* (Atorvastatin Calcium) 40 Mg Tablet 1 Tab PO HS 30 Days Ferrous Sulfate* (Ferrous Sulfate) 325 Mg Tablet 1 Tab PO DAILY 30 Days Eliquis (Apixaban) 5 Mg (74 Tabs) Tab.ds.pk 1 Tab PO BID 30 Days Reported Trazodone HCl 50 Mg Tablet 1 Tab PO PRN PRN 30 Days Bupropion Xl (Bupropion HCl) 300 Mg Tab.er.24h 1 Tab PO DAILY Vitamin D2 (Ergocalciferol (Vitamin D2)) 1,250 Mcg (14499 Unit) Capsule 1 Cap PO Q7D Anoro Ellipta 62.5-25 Mcg INH (Umeclidinium Brm/Vilanterol Tr) 62.5 Mcg-25 Mcg/Actuation Disk.w.dev 1 Puffs INH DAILY Pantoprazole Sodium 40 Mg Tablet.dr 1 Tab PO DAILY Roxicodone (Oxycodone Hcl) 5 Mg Tablet 1 Tab PO Q6H PRN Ramipril 10 Mg Capsule 1 Cap PO DAILY Diphenoxylate-Atrop 2.5-0.025 (Diphenoxylate HCl/Atropine) 2.5 Mg-0.025 Mg Tablet 2 Tab PO Q6H Metoprolol Succinate 25 Mg Tab.sr.24h 12.5 Mg PO DAILY Past Medical History Past Medical History Reviewed Past Surgical History Surgical History Comment Reviewed Family History Family History: FH: cancer FAMILY/OTHER, Name: BROTHER, , Onset:65 FH: diabetes mellitus FAMILY/OTHER, Name: BROTHER, FH: prostate cancer FATHER, Onset:90 FH: stomach cancer MOTHER, Onset:90 Past Social History Social History Comment Reviewed ROS ROS All other systems negative by patient report Exam Vitals: Vital Signs Date Time Temp Pulse Resp B/P (MAP) Pulse Ox O2 Delivery O2 Flow Rate FiO2 06/08/25 14:49 80 93/56 (68) 83 85/53 (64) 06/08/25 11:00 97.5 16 98 Nasal Cannula 2.0 06/08/25 08:24 21 Diagnostic Data Last Recorded Lab Results: 06/08/25 0518 06/08/25 0518 Diagnostic Data: I & O 06/08/25 07:00 Intake Total 400 ml Output Total 200 ml Balance 200 ml Intake Oral 400 ml Output Urine Total 200 ml # Voids 2 # Bowel Movements 2 Laboratory Tests Test 06/05/25 16:23 Prothrombin Time 17.9 SECONDS (9.0-12.0) H INR International Normalized Ratio 1.9 INR Activated Partial Thromboplast Time 32 SECONDS (22-32) Coagulation Comments Problems: (1) Acute kidney injury superimposed on CKD Assessment & Plan: Acute Kidney Injury (SUHAIL) on CKD: Likely pre-renal (cardiorenal) due to low cardiac output and possible diuretic use. Hold nephrotoxic agents (NSAIDs, IV contrast, minimize Roxicodone if possible). Monitor renal function and urine electrolytes daily. Renal ultrasound to rule out obstruction (not yet obtained). Strict I/O monitoring; daily weights. Avoid over-diuresis; titrate diuretics to maintain euvolemia, not aggressive diuresis. Continue SGLT2 inhibitor if hemodynamically stable and no evidence of DKA or severe SUHAIL (Cr <2.53.0, eGFR >20). Hold ACEi/ARB/ARNI temporarily if worsening SUHAIL, hypotension, or hyperkalemia; otherwise, resume/titrate as tolerated. (2) Heart failure Assessment & Plan: Heart Failure (HFrEF, EF ?10%): Initiate/optimize guideline-directed medical therapy as tolerated (GDMT): Beta-abner (metoprolol succinate): Continue if hemodynamically stable (HR >50, SBP >90). ACEi/ARB/ARNI (ramipril): Continue if renal function and potassium allow; otherwise, hold and re-evaluate. Mineralocorticoid receptor antagonist (spironolactone or eplerenone): Consider if K <5.0 and eGFR >30. SGLT2 inhibitor: Continue if tolerated. Loop diuretic (furosemide/bumetanide): Titrate to maintain euvolemia; avoid over-diuresis. Consider Thiazide type diuretic to augment lopp diuretics. Monitor for volume overload (JVP, edema, CXR, daily weights). Low sodium diet (<2g/day), fluid restriction if hyponatremic or volume overloaded. Cardiology follow-up for advanced therapies (consideration for device therapy, transplant, or palliative care as appropriate). (3) A-fib Assessment & Plan: Atrial Fibrillation: Continue anticoagulation (Eliquis) unless contraindicated by bleeding or severe SUHAIL. Rate control: Continue metoprolol as tolerated. (4) Diabetes Assessment & Plan: Diabetes Mellitus: Optimize glycemic control; avoid hypoglycemia, especially in the setting of SUHAIL. Monitor for SGLT2 inhibitor side effects (euglycemic DKA, mycotic infections). (5) COPD (chronic obstructive pulmonary disease) Assessment & Plan: COPD: Continue home BiPAP and inhalers (Anoro Ellipta). Monitor for respiratory decompensation. HELADIO SCHROEDER III DO Jun 08, 2025 17:43
[2025-06-08] MEDS: guaiFENesin ER 600mg tablet PO SCH (20:41)
[2025-06-08] MEDS: busPIRone 15mg tablet PO SCH (20:41)
[2025-06-08] MEDS: insulin glargine (Lantus) pen - multi-dose SQ SCH (21:11)
[2025-06-09] VITALS (32 sets, daily range): BP systolic 81–129; BP diastolic 45–71; PULSE 61–94; RESP 13–20; TEMP 97.2–98.2; O2SAT 94–100
[2025-06-09 06:44] LABS: MEAN PLATELET VOLUME 9.0 FL (7.4-10.4); RED CELL DISTRIBUTION WIDTH 16.4 % (11.5-14.5)
[2025-06-09 07:47] LABS: CREATININE 1.96 MG/DL (0.60-1.10); PHOSPHORUS 5.2 MG/DL (2.3-4.5); TOTAL CARBON DIOXIDE 26.0 MMOL/L (24-32); eCRCL 33 ML/MIN; eGFR 33 ML/MIN
[2025-06-09] MEDS: midodrine 5mg tablet PO SCH (09:54)
--- NOTE | 2025-06-09 11:27 | PROGRESS NOTE- Residence ---
Progress Note - Resident Providers to CC Resident Creating Document: ES ESPARZA RES ~ Antibiotic Timeout Antibiotic Ordered?: No Subjective Patient was seen and examined bedside. He is comfortably sitting in the chair and not in distress. He denies shortness of breath, chest pain, palpitations, fever, chills. He reports shortness of breath at night and is on BiPAP at night. There is no swelling of legs. He reports dizziness with a history of vertigo. He has no falls. 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 Objective Vital Signs Date Time Temp Pulse Resp B/P (MAP) Pulse Ox O2 Delivery O2 Flow Rate FiO2 06/09/25 10:20 76 14 Room Air 0.0 06/09/25 10:11 98 21 06/09/25 09:51 90/60 (70) 06/09/25 07:00 98.2 Result Diagram: 06/09/25 0601 06/09/25 0601 Awake , alert, and oriented x4, sitting comfortably in the chair, in no acute distress, LifeVest in place HEENT: Atraumatic, normocephalic, EOMI, anicteric sclera ; pink conjunctiva Neck: Trachea midline. Supple, full range of motion, no JVD Cardiac: Regular rate and rhythm, ejection systolic murmur heard at aortic region Respiratory: Equal breath sounds bilaterally, no tachypnea, no wheezing ,rub, rales. Chest wall is symmetric and without deformity. 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 No motor or sensory deficit, deep tendon reflexes normal, cerebellar intact. Cranial nerves II-XII intact. Skin: Warm and dry Coagulation Studies Laboratory Tests Test 06/05/25 16:23 Prothrombin Time 17.9 SECONDS (9.0-12.0) H INR International Normalized Ratio 1.9 INR Activated Partial Thromboplast Time 32 SECONDS (22-32) Coagulation Comments Assessment Assessment 80-year-old male with history of congestive heart failure, chronic AFib, ischemic cardiomyopathy, CAD s/p CABG, aortic stenosis, diabetes mellitus type 2, COPD was transferred from [place] for management of acute on chronic heart failure with reduced ejection fraction, SUHAIL and hypotension. Plan Plan Acute on chronic heart failure with reduced ejection fraction, improving ACC/AHA stage C, class D Shortness of breath has improved He is saturating well on RA Uses Bipap at home in the night, continue Previous echo in October 2023 showed ejection fraction of 50-55% as per medical records from [place] Echo shows LVEF of 10%, RVSP 54 mmHg, dilated RV, LA and RA, moderate mitral regurgitation and mild tricuspid regurgitation Chest x-ray shows cardiomegaly Patient uses ramipril 10 mg, metoprolol succinate 25 mg, Lasix 20 mg at home Blood pressure is on the soft side Held lisinopril 5 mg and spironolactone 12.5 mg Continue metoprolol succinate 12.5 mg Continue Jardiance 10 mg Orthostatic vitals negative Increased midodrine from 5 to 10 mg Consider transition from lisinopril to Entresto once blood pressure stable Patient takes Lasix 20 mg at home, Held Lasix Positive fluid balance of 1010 mL, Continue strict I's and os Fluid restriction to 1.5 L per day 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 Lunsford recommended outpatient Lexiscan Continue LifeVest Started dobutamine drip at 4.92 ml/hr, as per Ventilation Mechanic, Dr. Spivey recommendations Elevated troponin 2/[address] Patient has no chest pain Troponins were 87, 86, 89 Tele shows AFib, rate controlled AFib, rate controlled Ryder Vasc score 6 Tele shows AFib, rate controlled Patient uses metoprolol succinate 25 at home Continue metoprolol succinate 12.5 mg Continue Eliquis 5 mg b.i.d. COPD, not in exacerbation Patient uses BiPAP at home for COPD Patient is saturating well on RA Chest x-ray (06/05/25) showed cardiomegaly and vascular congestion Held Lasix in view of soft blood pressure DuoNebs p.r.n. SUHAIL, possibly prerenal due to dehydration CKD stage 3a Vasomotor nephropathy Creatinine has up trended to 1.96 Fena- 0.6%, suggesting prerenal SUHAIL Held home medication Lasix 20 mg Positive fluid balance of 1010 mL, Continue strict I's and os Monitor BMP Ventilation Mechanic, Dr. Young was consulted, and recommended to continue current management, follow up renal ultrasound As blood pressures were soft, Dr. Spivey was consulted and recommended to start dobutamine drip Diabetes mellitus type 2 HGB A1c is 8.2 Glucose is 124 this a.m but glucose levels were high yesterday during the day Goal of glucose levels inpatient is 140-180 Increased Lantus to 10 units h.s. On medium-dose hyperglycemic hypoglycemic protocol Started lispro 3 units with meals Patient does not want carb controlled diet and he had a sleeve gastrectomy, nutrition consult placed Hyperphosphatemia Phosphorus is 5.2 Continue sevelamer 800 mg t.i.d. Monitor phosphorus Abdominal aortic aneurysm CT imaging at [place] showed aneurysm measuring 4.2 x 3.3 cm. Continue surveillance outpatient Code status: Full code DVT prophylaxis: Eliquis 5 mg b.i.d. GI prophylaxis: Pantoprazole 40 mg Pain management: Tylenol p.r.n. Diet/nutrition: Regular diet Prognosis: Guarded Disposition: Monitor blood pressure and creatinine, continue dobutamine drip, LifeVest in place. Resident MD attestation: The patient note has been reviewed and supervised by senior residents PGY-2/ PGY-3. Patient was seen, examined and discussed with attending physician, Dr. Raine Esparza MD Internal Medicine resident, PGY-1 Date of Service: Jun 09, 2025 Billing Provider: KATELYNN SOTO MD Common Visit Codes: 68895-[id number] INP/OBS CARE(HIGH) ES ESPARZA, RES Jun 09, 2025 11:27 KATELYNN SOTO MD Jun 11, 2025 14:04
[2025-06-09] MEDS: DOBUTamine-DoBUTrex 500mg/D5W 250 ML IV SCH (11:53)
[2025-06-09] MEDS: INSULIN LISPRO 100 UNIT/ML INSULN.PEN MULTI-DOSE SQ SCH ×2 (12:00→13:00)
[2025-06-09] MEDS: HYDROcodone/acetaminophen 5mg/325mg tablet PO PRN (14:19)
[2025-06-09] MEDS: Ensure Enlive - 237ML PO SCH (18:31)
--- NOTE | 2025-06-09 19:36 | PROGRESS NOTE ---
Progress Note Dictate Providers to CC ~ Central Line/PICC still needed: Yes Central Line/PICC Necessity: Prolonged IV access req Childs Indications Met/Not Met: F/C Indications Met Antibiotic Ordered?: N/A Subjective Subjective just went on dobutamine for the poor EF at 10% with oliguria and continued rise in renal arameters. i discussed with resident, patient and the son by his bedside. his prognosis is very guarded ahead. Objective Vitals Vital Signs Date Time Temp Pulse Resp B/P (MAP) Pulse Ox O2 Delivery O2 Flow Rate FiO2 06/09/25 17:00 78 105/55 (72) 06/09/25 15:35 14 Room Air 0.0 06/09/25 15:26 99 21 06/09/25 15:00 97.3 Lab Results: 06/09/25 0601 06/09/25 0601 Objective Vital Signs: As above lige vest in place General: Normal body habitus, no acute distress. Skin: No rashes, lumps, ulcers, blisters, purpura or petechiae HEENT: Anicteric sclera, JOSUE Neck: Supple and nontender without enlargement of the thyroid, or lymphadenopathy. Chest: Normal size and shape, no tenderness, CTA bilaterally Heart: Regular. No jugular venous distention, S1 and S2 heard , no gallop Abdomen: Soft and non tender no organomegaly,BS+ Extremities: No pedal edema Neuro: Nonfocal. Coagulation Studies Laboratory Tests Test 06/05/25 16:23 Prothrombin Time 17.9 SECONDS (9.0-12.0) H INR International Normalized Ratio 1.9 INR Activated Partial Thromboplast Time 32 SECONDS (22-32) Coagulation Comments Advance Care Planning Advanced Care plannin - 30 Minutes Problem\Assessment\Plan Problems/Diagnosis: (1) Acute kidney injury superimposed on CKD Assessment & Plan: Acute Kidney Injury (SUHAIL) on CKD: Likely pre-renal (cardiorenal) due to low cardiac output and possible diuretic use. Hold nephrotoxic agents (NSAIDs, IV contrast, minimize Roxicodone if possible). Monitor renal function and urine electrolytes daily. Renal ultrasound to rule out obstruction (not yet obtained). Strict I/O monitoring; daily weights. Avoid over-diuresis; titrate diuretics to maintain euvolemia, not aggressive diuresis. Continue SGLT2 inhibitor if hemodynamically stable and no evidence of DKA or severe SUHAIL (Cr <2.53.0, eGFR >20). Hold ACEi/ARB/ARNI temporarily if worsening SUHAIL, hypotension, or hyperkalemia; otherwise, resume/titrate as tolerated. (2) Heart failure Assessment & Plan: Heart Failure (HFrEF, EF ?10%): Initiate/optimize guideline-directed medical therapy as tolerated (GDMT): Beta-abner (metoprolol succinate): Continue if hemodynamically stable (HR >50, SBP >90). ACEi/ARB/ARNI (ramipril): Continue if renal function and potassium allow; otherwise, hold and re-evaluate. Mineralocorticoid receptor antagonist (spironolactone or eplerenone): Consider if K <5.0 and eGFR >30. SGLT2 inhibitor: Continue if tolerated. Loop diuretic (furosemide/bumetanide): Titrate to maintain euvolemia; avoid over-diuresis. Consider Thiazide type diuretic to augment lopp diuretics. Monitor for volume overload (JVP, edema, CXR, daily weights). Low sodium diet (<2g/day), fluid restriction if hyponatremic or volume overloaded. Cardiology follow-up for advanced therapies (consideration for device therapy, transplant, or palliative care as appropriate). (3) A-fib (4) Diabetes (5) COPD (chronic obstructive pulmonary disease) MARISA BROWNING MD Jun 09, 2025 19:36
[2025-06-09] MEDS: insulin glargine (Lantus) pen - multi-dose SQ SCH (20:38)
[2025-06-10] VITALS (22 sets, daily range): BP systolic 89–112; BP diastolic 54–75; PULSE 75–106; RESP 15–20; TEMP 97.6–97.9; O2SAT 94–99
[2025-06-10 06:28] LABS: MEAN PLATELET VOLUME 8.8 FL (7.4-10.4); RED CELL DISTRIBUTION WIDTH 16.5 % (11.5-14.5)
[2025-06-10 06:57] LABS: CREATININE 1.54 MG/DL (0.60-1.10); PHOSPHORUS 3.9 MG/DL (2.3-4.5); TOTAL CARBON DIOXIDE 27.9 MMOL/L (24-32); eCRCL 42 ML/MIN; eGFR 44 ML/MIN
--- NOTE | 2025-06-10 07:45 | PROGRESS NOTE ---
Progress Note Dictate Providers to CC ~ Central Line/PICC still needed: No Childs Indications Met/Not Met: F/C Indications Not Met Antibiotic Ordered?: N/A Subjective Subjective the patient is feeling better. good urine output and responsive to dobutamine. If the bP is good, he can be optimized on afterload reducers per cardiology, and SGLT2i and aldactone. thereby dobutamine can be weaned. Objective Vitals Vital Signs Date Time Temp Pulse Resp B/P (MAP) Pulse Ox O2 Delivery O2 Flow Rate FiO2 06/10/25 15:56 82 20 Room Air 0.0 21 06/10/25 15:47 94 06/10/25 15:00 97.6 90/60 (70) Lab Results: 06/10/25 0605 06/10/25 0605 Objective Vital Signs: As above lige vest in place General: Normal body habitus, no acute distress. Skin: No rashes, lumps, ulcers, blisters, purpura or petechiae HEENT: Anicteric sclera, JOSUE Neck: Supple and nontender without enlargement of the thyroid, or lymphadenopathy. Chest: Normal size and shape, no tenderness, CTA bilaterally Heart: Regular. No jugular venous distention, S1 and S2 heard , no gallop Abdomen: Soft and non tender no organomegaly,BS+ Extremities: No pedal edema Neuro: Nonfocal. Coagulation Studies Laboratory Tests Test 06/05/25 16:23 Prothrombin Time 17.9 SECONDS (9.0-12.0) H INR International Normalized Ratio 1.9 INR Activated Partial Thromboplast Time 32 SECONDS (22-32) Coagulation Comments Advance Care Planning Advanced Care plannin - 30 Minutes Problem\Assessment\Plan Problems/Diagnosis: (1) Acute kidney injury superimposed on CKD Assessment & Plan: Acute Kidney Injury (SUHAIL) on CKD: Likely pre-renal (cardiorenal) due to low cardiac output and possible diuretic use. Hold nephrotoxic agents (NSAIDs, IV contrast, minimize Roxicodone if possible). Monitor renal function and urine electrolytes daily. creatinine has started coming down. today it is 1.5. Good urine flow with the dobutamine on. Renal ultrasound to rule out obstruction (not yet obtained). Strict I/O monitoring; daily weights. Avoid over-diuresis; titrate diuretics to maintain euvolemia, not aggressive diuresis. Continue SGLT2 inhibitor if hemodynamically stable and no evidence of DKA or severe SUHAIL (Cr <2.53.0, eGFR >20). Hold ACEi/ARB/ARNI temporarily if worsening SUHAIL, hypotension, or hyperkalemia; otherwise, resume/titrate as tolerated. (2) Heart failure Assessment & Plan: Heart Failure (HFrEF, EF 10%): Initiate/optimize guideline-directed medical therapy as tolerated (GDMT): Beta-abner (metoprolol succinate): Continue if hemodynamically stable (HR >50, SBP >90). ACEi/ARB/ARNI (ramipril): Continue if renal function and potassium allow; otherwise, hold and re-evaluate. Mineralocorticoid receptor antagonist (spironolactone or eplerenone): Consider if K <5.0 and eGFR >30. SGLT2 inhibitor: Continue if tolerated. Loop diuretic (furosemide/bumetanide): Titrate to maintain euvolemia; avoid over-diuresis. Monitor for volume overload (JVP, edema, CXR, daily weights). Low sodium diet (<2g/day), fluid restriction if hyponatremic or volume overloaded. Cardiology follow-up for advanced therapies (consideration for device therapy, transplant, or palliative care as appropriate). (3) A-fib Assessment & Plan: heart rate controlled. on dobutamine. it is going to be weaned. creatinine is getting better (4) Diabetes Assessment & Plan: follow up hbA1C. There is no overt proteinuria. (5) COPD (chronic obstructive pulmonary disease) MARISA BROWNING MD Jun 10, 2025 07:45
--- NOTE | 2025-06-10 15:42 | RADIOLOGY REPORT ---
CLINICAL HISTORY: greg TECHNIQUE: Complete ultrasound exam of the kidneys and bladder was performed. COMPARISON: None FINDINGS: Evaluation is limited due to suboptimal image quality due to patient condition. The right kidney has normal echogenicity and measures 9.5 cm. There is no focal parenchymal abnormality or evidence for stone. There is no hydronephrosis. The left kidney has normal echogenicity and measures 8.9 cm. There is a 1.8 cm cyst. There is a 3.6 cm hypoechoic lesion. There is no hydronephrosis. The bladder is grossly unremarkable. IMPRESSION: 3.6 cm hypoechoic left renal lesion, which may represent a cyst. Recommend repeat ultrasound in 1 month after patient's condition improves for better assessment.
--- NOTE | 2025-06-10 16:02 | DISCHARGE SUMMARY-Residence ---
Discharge Summary Providers to CC Resident Creating Document: ES ESPARZA RES CC: KATELYNN SOTO MD ~ Discharge Summary Admission Diagnosis: ventricular dysfunction Hospital Course DATE OF ADMISSION: 06/05/2025 DATE OF DISCHARGE: 06/10/2025 Discharge Diagnosis\Comment: Acute on chronic heart failure with reduced ejection fraction of 10% Elevated troponin 2/2 Type 2 MN AFib, rate controlled COPD, not in exacerbation SUHAIL, possibly prerenal due to dehydration, vasomotor nephropathy CKD stage 3a Vasomotor nephropathy Diabetes mellitus type 2 Hyperphosphatemia Abdominal aortic aneurysm Operations\Procedures: none Consultants: Dr. Riki Shin MD Journeyman [employer] Dr. Isatu MD [employer] Dr. Sidney Young DO Needle Board Repairer Dr. Jarod Spivey MD Needle Board Repairer Complications: none Condition on DC: Stable New Medications: Sacubitril/Valsartan (Entresto 24 mg-26 mg Tablet) 24 Mg-26 Mg Tablet 1 TAB PO Q12H for 30 Days, #60 TAB 0 Refills Empagliflozin (Jardiance) 10 Mg Tablet 10 MG PO DAILY for 30 Days, #30 TAB Guaifenesin (Mucinex) 600 Mg Tablet.sa 600 MG PO Q12H for 5 Days, #10 TAB.SR Continued Medications: Apixaban (Eliquis) 5 Mg (74 Tabs) Tab.ds.pk 1 TAB PO BID for 30 Days, #74 TAB 0 Refills Atorvastatin Calcium* (Lipitor*) 40 Mg Tablet 1 TAB PO HS for 30 Days, #30 TAB Bupropion HCl (Bupropion Xl) 300 Mg Tab.er.24h 1 TAB PO DAILY Buspirone Hcl* (Buspar*) 10 Mg Tablet 4.5 TAB PO BID for 30 Days, #30 TAB Diphenoxylate HCl/Atropine (Diphenoxylate-Atrop 2.5-0.025) 2.5 Mg-0.025 Mg Tablet 2 TAB PO Q6H Ergocalciferol (Vitamin D2) (Vitamin D2) 1,250 Mcg (28289 Unit) Capsule 1 CAP PO Q7D Ferrous Sulfate* (Ferrous Sulfate*) 325 Mg Tablet 1 TAB PO DAILY for 30 Days, #30 TAB Metoprolol Succinate (Metoprolol Succinate) 25 Mg Tab.sr.24h 12.5 MG PO DAILY Oxycodone Hcl (Roxicodone) 5 Mg Tablet 1 TAB PO Q6H PRN for pain Pantoprazole Sodium (Pantoprazole Sodium) 40 Mg Tablet.dr 1 TAB PO DAILY Prednisolone Acetate/Pf (Prednisolone Acet 1% Eye Drop) 1 % Drops.susp 1 DROP LEFTEYE Q6H for 30 Days, #5 ML 0 Refills Trazodone HCl (Trazodone HCl) 50 Mg Tablet 1 TAB PO PRN PRN for sleep for 30 Days, #30 TAB 0 Refills Umeclidinium Brm/Vilanterol Tr (Anoro Ellipta 62.5-25 Mcg INH) 62.5 Mcg-25 Mcg/Actuation Disk.w.dev 1 PUFFS INH DAILY Venlafaxine Hcl* (Effexor*) 25 Mg Tablet 4 TAB PO BID for 30 Days, #100 TAB Discontinued Medications: Ramipril (Ramipril) 10 Mg Capsule 1 CAP PO DAILY Discharge Summary: HPI as per admitting physician: 80-year-old male with history of congestive heart failure, chronic AFib, ischemic cardiomyopathy, CAD s/p CABG, aortic stenosis, diabetes mellitus type 2, COPD was transferred from [facility] for management of acute on chronic systolic heart failure, as they did not have cardiology. He states that he went to [facility] as he was very weak and had shortness of breath. He has had shortness of breath for the past 3 months which has progressively worsened. He states that he uses BiPAP at home for COPD. He states having chronic dry cough. He reports having the flu for 2 weeks around 2 months ago. He denies swelling of legs, chest pain, palpitations. He can not walk more than 1 block without having shortness of breath and he endorses orthopnea. He denies abdominal pain, abdominal distention, nausea, vomiting, constipation, diarrhea, changes in appetite, fever, chills. Hospital Course: He is saturating well on room air and has no pedal edema, he was given Lasix at [facility] for 2 days and he is not fluid overloaded at the moment. BNP is 9472. Echo in October 2023 showed ejection fraction of 50-55% as per medical records from [facility]. Echo shows EF of 10% currently. Chest x-ray shows cardiomegaly. He uses ramipril 10 mg, metoprolol succinate 25 mg and Lasix 20 mg at home. We have continued ramipril 10 mg and metoprolol succinate 25 mg. We started spironolactone 25 mg and Jardiance 10 mg. Started IV Lasix 20 mg daily and monitored I's and os. He was kept on fluid restriction to 1.5 L per day and started on Robitussin 15 mL daily. He had a automated logistics specialist in [place] who retired and he does not have a automated logistics specialist at the moment. On-call automated logistics specialist, Dr. Shin was consulted and he recommended to continue GDMT, according to the patient, Dr. Lunsford spoke to him the previous day and considered plans for AICD in the future, hence Dr. Lunsford was consulted. He was placed on a life vest. Dr. Lunsford recommended outpatient Lexiscan. Troponin trend suggested type 2 MN. Tele showed AFib which was rate controlled and he was continued on Eliquis 5 mg b.i.d. and metoprolol succinate 25 mg. Patient uses BiPAP at home for COPD. He is saturating well on room air but requires BiPAP at night. Creatinine was elevated 1.31. Lisinopril and Lasix were held. FENA was 0.6% suggesting prerenal SUHAIL. His blood pressure was soft from the day 1 of admission , hence metoprolol succinate and spironolactone were held. He was started on midodrine 5 mg. Needle Board Repairer, Dr. Young and Dr. Spivey recommended to start patient on dobutamine as his blood pressure was too low and his creatinine was up trending. On the following day his blood pressure came up to 103/75 and creatinine downtrended, dobutamine drip was slowly titrated stopped on the day of admission. He was discharged on low-dose Entresto, metoprolol succinate 12.5 mg and Jardiance 10 mg. Patient did not experience further complications throughout the entire hospital stay. Patient was seen and examined on the day of discharge. All labs, diagnostic workups, discharge plan discussed with the patient in detail during visit before discharge. All questions and concerns answered to the best of my professional knowledge. Imaging: Chest X ray-06/05/25 Cardiomegaly Echocardiogram-06/05/25 Normal LV size and wall thickness. Overall systolic function is severely reduc ed. LVEF is 10%.RV is moderately increased in size with severely reduced function. Elevated right heart pressures with an RVSP of 54 mmHg.Left atrium is severely dilated. Right atrium is severely dilated.Trileaflet AV appears severely calcified and sclerotic without stenosis. Moderate insufficiency.Mild annular calcification without stenosis. Moderate regurgitation.TV appears st ructurally normal with mild regurgitation.Normal pericardium. No effusion. Renal ultrasound-06/10/25 3.6 cm hypoechoic left renal lesion, which may represent a cyst. Recommend repeat ultrasound in 1 month after patient's condition improves for better as sessment. Vital Signs Date Time Temp Pulse Resp B/P (MAP) Pulse Ox O2 Delivery O2 Flow Rate FiO2 06/10/25 12:28 103/66 (78) 06/10/25 11:29 86 92 86 06/10/25 11:00 97.9 16 99 Room Air 06/10/25 08:37 0.0 21 Labs: Test 06/08/25 17:12 06/08/25 21:05 06/09/25 06:01 06/09/25 07:45 Glucometer 241 mg/dl 200 mg/dl 124 mg/dl White Blood Count 8.0 X10'3 Red Blood Count 4.68 X10'6 Hemoglobin 13.4 g/dl Hematocrit 40.8 % Mean Corpuscular Volume 87.1 FL Mean Corpuscular Hemoglobin 28.7 PG Mean Corpuscular Hemoglobin Concent 32.9 g/dL Red Cell Distribution Width 16.4 % Platelet Count 356 X10'3 Mean Platelet Volume 9.0 FL Neutrophils (%) (Auto) 57.2 % Lymphocytes (%) (Auto) 30.4 % Monocytes (%) (Auto) 10.9 % Eosinophils (%) (Auto) 0.9 % Basophils (%) (Auto) 0.6 % Neutrophils # (Auto) 4.6 X10'3 Lymphocytes # (Auto) 2.4 X10'3 Monocytes # (Auto) 0.9 X10'3 Eosinophils # (Auto) 0.1 X10'3 Basophils # (Auto) 0.1 X10'3 CBC Comment Sodium Level 133 MMOL/L Potassium Level 4.6 MMOL/L Chloride Level 97 MMOL/L Carbon Dioxide Level 26.0 MMOL/L Anion Gap 10 Blood Urea Nitrogen 31 MG/DL Creatinine 1.96 MG/DL Estimated GFR/1.73 m2 33 ML/MIN BUN/Creatinine Ratio 15.8 Glucose Level 135 MG/DL Calcium Level 8.0 MG/DL Phosphorus Level 5.2 MG/DL Magnesium Level 2.4 MG/DL Albumin 3.4 G/DL Chemistry Comments Test 06/09/25 12:01 06/09/25 16:30 06/09/25 20:31 06/10/25 06:05 Glucometer 122 mg/dl 150 mg/dl 171 mg/dl White Blood Count 7.5 X10'3 Red Blood Count 4.54 X10'6 Hemoglobin 13.0 g/dl Hematocrit 39.2 % Mean Corpuscular Volume 86.3 FL Mean Corpuscular Hemoglobin 28.5 PG Mean Corpuscular Hemoglobin Concent 33.0 g/dL Red Cell Distribution Width 16.5 % Platelet Count 337 X10'3 Mean Platelet Volume 8.8 FL Neutrophils (%) (Auto) 57.8 % Lymphocytes (%) (Auto) 28.0 % Monocytes (%) (Auto) 9.7 % Eosinophils (%) (Auto) 3.2 % Basophils (%) (Auto) 1.3 % Neutrophils # (Auto) 4.4 X10'3 Lymphocytes # (Auto) 2.1 X10'3 Monocytes # (Auto) 0.7 X10'3 Eosinophils # (Auto) 0.2 X10'3 Basophils # (Auto) 0.1 X10'3 CBC Comment Sodium Level 136 MMOL/L Potassium Level 4.6 MMOL/L Chloride Level 100 MMOL/L Carbon Dioxide Level 27.9 MMOL/L Anion Gap 8 Blood Urea Nitrogen 24 MG/DL Creatinine 1.54 MG/DL Estimated GFR/1.73 m2 44 ML/MIN BUN/Creatinine Ratio 15.6 Glucose Level 101 MG/DL Calcium Level 8.3 MG/DL Phosphorus Level 3.9 MG/DL Albumin 3.4 G/DL Chemistry Comments Test 06/10/25 12:08 Glucometer 131 mg/dl Examination on discharge: Awake , alert, and oriented x4, sitting comfortably in the chair, in no acute distress, LifeVest in place HEENT: Atraumatic, normocephalic, EOMI, anicteric sclera ; pink conjunctiva Neck: Trachea midline. Supple, full range of motion, no JVD Cardiac: Regular rate and rhythm, ejection systolic murmur heard at aortic region Respiratory: Equal breath sounds bilaterally, no tachypnea, no wheezing ,rub, rales. Chest wall is symmetric and without deformity. 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 No motor or sensory deficit, deep tendon reflexes normal, cerebellar intact. Cranial nerves II-XII intact. Skin: Warm and dry Discharge Instructions: Follow up with PCP, automated logistics specialist, Dr. Lunsford and garment parts cutter hand in 1-2 weeks Recommended stress test outpatient in Dr. Lunsford's office Continue LifeVest Follow up creatinine levels outpatient We have held ramipril, do not take it as it can affect your kidneys We have started Entresto, monitor blood pressure every day, do not take it if systolic BP < 100 Continue metoprolol succinate 12.5 mg, do not take it if systolic BP < 110 Repeat renal ultrasound outpatient in 1 month follow up with Nephrology Recommended carb controlled diet, monitor glucose levels Continue surveillance outpatient for abdominal aortic aneurysm Call 911 or go to ER for further episodes of shortness of breath, swelling of legs, chest pain, palpitations, fever, chills, syncope, dizziness, loss of consciousness etc The patient was seen and evaluated on day of discharge. Time spent on discharge 35 minutes. Es Esparza MD Internal Medicine resident, PGY-1 *Problems/Diagnosis: (1) Acute kidney injury superimposed on CKD (2) Heart failure (3) A-fib (4) Diabetes (5) COPD (chronic obstructive pulmonary disease) (6) Type 2 MN (myocardial infarction) Total Time Spent on D/C: > 30 Minutes Counseling Services Smoking & Tobacco Cessation: N/A Date of Service: Jun 10, 2025 Billing Provider: KATELYNN SOTO MD Common Visit Codes: 58388-STS/OBS DISCH DAY >30min ES ESPARZA, RES Jun 10, 2025 15:17 KATELYNN SOTO MD Jun 11, 2025 14:04
[2025-06-10] MEDS ORDERED: EMPA10TA PO (16:25)
[2025-06-10] MEDS ORDERED: GUAI600T45 PO (16:25)
[2025-06-10] MEDS ORDERED: SACU1TAB PO (16:25)
[2025-06-10] MEDS: FLU VACC TS2025-26(6MOS UP)/PF (FLULAVAL) 45 MCG/0.5 ML SYRINGE IMVAC ONE (16:50)
== END 2025-06-10 18:00 | disposition home or self-care (01) | DRG 280 ==
LOC: PCU 3S 14:31
PROVIDERS: ADMIT Internal Medicine; ATTEND Internal Medicine
PROC: 5A09357 Assistance with Respiratory Ventilation, Less than 24 Consecutive Hours, Continuous Positive Airway Pressure (ICD-10-PCS; principal; 2025-06-08)
PROC: 5A09357 Assistance with Respiratory Ventilation, Less than 24 Consecutive Hours, Continuous Positive Airway Pressure (ICD-10-PCS; 2025-06-09)
PROC: 5A09357 Assistance with Respiratory Ventilation, Less than 24 Consecutive Hours, Continuous Positive Airway Pressure (ICD-10-PCS; 2025-06-10)
DX: I13.0 Hypertensive heart and chronic kidney disease with heart failure and stage 1 through stage 4 chronic kidney disease, or unspecified chronic kidney disease (principal); I50.23 Acute on chronic systolic (congestive) heart failure; I21.A1 Myocardial infarction type 2; N17.0 Acute kidney failure with tubular necrosis; E86.0 Dehydration; I48.20 Chronic atrial fibrillation, unspecified; E11.22 Type 2 diabetes mellitus with diabetic chronic kidney disease; E83.39 Other disorders of phosphorus metabolism; Z79.01 Long term (current) use of anticoagulants; N18.31 Chronic kidney disease, stage 3a; J44.9 Chronic obstructive pulmonary disease, unspecified; I71.40 Abdominal aortic aneurysm, without rupture, unspecified; F32.A Depression, unspecified; I35.0 Nonrheumatic aortic (valve) stenosis; E87.1 Hypo-osmolality and hyponatremia; I25.5 Ischemic cardiomyopathy; I25.10 Atherosclerotic heart disease of native coronary artery without angina pectoris; F41.9 Anxiety disorder, unspecified; G47.30 Sleep apnea, unspecified; Z96.653 Presence of artificial knee joint, bilateral; Z87.891 Personal history of nicotine dependence; Z80.42 Family history of malignant neoplasm of prostate; Z95.1 Presence of aortocoronary bypass graft; Z80.0 Family history of malignant neoplasm of digestive organs; Z83.3 Family history of diabetes mellitus; Z79.899 Other long term (current) drug therapy; Z88.8 Allergy status to other drugs, medicaments and biological substances; Z98.61 Coronary angioplasty status; Z80.8 Family history of malignant neoplasm of other organs or systems
CPT/HCPCS: 36415; 71045; 76770; 80048; 80053; 80061; 81001; 82248; 82570; 82948; 83036; 83605; 83735; 83880; 83935; 84100; 84145; 84300; 84484; 85025; 85610; 85730; 87081; 87207; 93005; 93306; 94640; 94660; 94760; A4615; A6258; G0378; J1250; J1815; J1938; J2405; J7040

== ENCOUNTER 2025-06-17 20:18 | Emergency (ER) | payer MEDICARE, OTHER ==
[~2025-06-17] VITALS: Ht 177.8 cm; Wt 83.6 kg
[~2025-06-17 20:18] MED LIST changes: +APIX5TAB5 PO; +ATOR40TA PO; +BUPR-480 PO; +BUSP10TA11 PO; -CEPH-571 PO; +EMPA10TA PO; +ERGO125018 PO; +FERR325T28 PO; +GUAI600T45 PO; +METO-395 PO; +OXYC5TAB2 PO; +PANT40TA54 PO; +PRED5DRO23 LEFTEYE; +SACU1TAB PO; +TRAZ-251 PO; +UMEC1DIS INH; +VENL25TA48 PO; +[UNRECOGNIZED DRUG - CODE] PO
[2025-06-17 20:48] LABS: MEAN PLATELET VOLUME 8.2 FL (7.4-10.4); RED CELL DISTRIBUTION WIDTH 17.5 % (11.5-14.5)
--- NOTE | 2025-06-17 20:52 | RADIOLOGY REPORT ---
EXAM: DI CHEST,SINGLE VIEW HISTORY: CP TECHNIQUE: 1 view of the chest COMPARISON: DI CHEST,SINGLE VIEW on DOS: 06/05/25 FINDINGS/IMPRESSION: LUNGS: No pleural effusion, consolidation, or pneumothorax. MEDIASTINUM: Unremarkable. BONES: No acute osseous abnormality. OTHER: None.
[2025-06-17 21:06] LABS: CREATININE 1.62 MG/DL (0.60-1.10); PRO BRAIN NATRIURETIC PEPTIDE 11146 PG/ML (0-450); TOTAL CARBON DIOXIDE 26.8 MMOL/L (24-32); eCRCL 39 ML/MIN; eGFR 41 ML/MIN
--- NOTE | 2025-06-17 22:45 | Physician Documentation ---
History of Present Illness ~ Chief Complaint: Chest Pain Stated Complaint: CP Time Seen by MD: 22:40 Mode of Arrival: POV HPI Who presents to the emergency room for evaluation of chest pain that woke him up from sleep this afternoon. Patient has past history including coronary artery disease with five-vessel CABG in 2010. Cardiac catheterization in 2017 with stent to the OM/left circumflex. He has history of atrial fibrillation on oral anticoagulation. He also has significant heart failure with an ejection fraction of 10% for which she wears a vest for. He would not take his anticoagulation today because of the chest pain. States it feels like indigestion that has not taken any medicine for indigestion. Medication Reconciliation Allergies: Coded Allergies: pregabalin (Unverified Allergy, Mild, 06/07/25) gabapentin (Verified Allergy, Unknown, 06/29/20) losartan (Verified Allergy, Unknown, 06/29/20) chlorhexidine (Unverified Adverse Reaction, Mild, 06/07/25) Uncoded Allergies: SALT PILLS (Allergy, Unknown, 06/29/20) Scheduled Apixaban (Eliquis), 1 TAB PO BID Atorvastatin Calcium* (Lipitor*), 1 TAB PO HS Bupropion HCl (Bupropion Xl), 1 TAB PO DAILY, (Reported) Buspirone Hcl* (Buspar*), 4.5 TAB PO BID Diphenoxylate HCl/Atropine (Diphenoxylate-Atrop 2.5-0.025), 2 TAB PO Q6H, (Reported) Empagliflozin (Jardiance), 10 MG PO DAILY Ergocalciferol (Vitamin D2) (Vitamin D2), 1 CAP PO Q7D, (Reported) Ferrous Sulfate* (Ferrous Sulfate*), 1 TAB PO DAILY Guaifenesin (Mucinex), 600 MG PO Q12H Metoprolol Succinate (Metoprolol Succinate), 12.5 MG PO DAILY, (Reported) Pantoprazole Sodium (Pantoprazole Sodium), 1 TAB PO DAILY, (Reported) Prednisolone Acetate/Pf (Prednisolone Acet 1% Eye Drop), 1 DROP LEFTEYE Q6H Sacubitril/Valsartan (Entresto 24 mg-26 mg Tablet), 1 TAB PO Q12H Umeclidinium Brm/Vilanterol Tr (Anoro Ellipta 62.5-25 Mcg INH), 1 PUFFS INH DAILY, (Reported) Venlafaxine Hcl* (Effexor*), 4 TAB PO BID Scheduled PRN Oxycodone Hcl (Roxicodone), 1 TAB PO Q6H PRN for pain, (Reported) Trazodone HCl (Trazodone HCl), 1 TAB PO PRN PRN for sleep, (Reported) Discontinued Medications Ramipril (Ramipril), 1 CAP PO DAILY, (Reported) Past Medical History Past Medical History: Diabetes Past Surgical History: no surgical history Patient History: FH: cancer FAMILY/OTHER, Name: BROTHER, , Onset:65 FH: diabetes mellitus FAMILY/OTHER, Name: BROTHER, FH: prostate cancer FATHER, Onset:90 FH: stomach cancer MOTHER, Onset:90 Alcohol Use: None Drug Use: none Lives with: Spouse Lives In: Home Review of Systems ROS All review of systems negative except as per HPI Physical Exam Vital Signs: Temperature: 98.5, Source: Oral, Heart Rate: 77, Respiratory Rate: 17, BP: 90/51, Pulse Oximetry: 100, Weight: 83.600 Oxygen Flow Rate: 0 Physical Exam General: Patient is awake, alert, oriented x4 in no acute distress Head: Normocephalic and atraumatic. Eyes: Conjunctival normal. EOMI. PERRL. ENT: Mucous membranes moist. Neck: Supple, trachea is midline. Chest: Clear to auscultation bilaterally without rales, rhonchi, or wheezes. There is no accessory muscle use or retractions. Cardiac: RRR without murmurs, gallops, or rubs. Abd: Soft, nondistended, nontender, with normoactive bowel sounds. No guarding, rebound, or rigidity. Progress Results/Orders Results/Orders Orders - SILVER DIAZ MD Chest,Single View (06/17/25 20:36) Monitor (06/17/25 20:24) Saline Lock (06/17/25 20:24) Oxygen (06/17/25 20:24) Electrocardiogram (06/17/25 20:24) Hs Troponin I W Calculations (06/17/25 23:24) Completed Orders - SILVER DIAZ MD Chest,Single View (06/17/25 20:36) Cbc/Diff (06/17/25 20:24) BMP (06/17/25 20:24) PBNP (06/17/25 20:24) Hs Troponin I W Calculations (06/17/25 20:24) Hs Troponin I W Calculations (06/17/25 22:24) Ondansetron Disint. Tablet (Zofran Odt T (06/17/25 22:55) Mag & Alum Hydrox/Simeth Susp (Maalox Or (06/17/25 22:55) Lidocaine 2% Viscous (Xylocaine 2% Visco (06/17/25 22:55) Medications Received in ER Medications (Trade) Dose Ordered Sig/Pedro Route PRN Reason Start Time Stop Time Status Last Admin Dose Admin (Zofran ODT tablet) 4 mg ONCE ONCE PO 06/17/25 22:55 06/17/25 22:56 DC 06/17/25 23:06 4 MG (Maalox oral suspension) 30 ml ONCE ONCE PO 06/17/25 22:55 06/17/25 22:56 DC 06/17/25 23:06 30 ML (Xylocaine 2% Viscous 15mL cup) 15 ml ONCE ONCE MM 06/17/25 22:55 06/17/25 22:56 DC 06/17/25 23:06 15 ML Vital Signs 06/17/25 06/17/25 06/17/25 06/17/25 20:47 22:19 22:23 23:13 Temp 98.5 Pulse 73 77 82 Resp 14 17 17 15 B/P (MAP) 97/51 90/51 (64) 112/70 (84) Pulse Ox 99 100 100 O2 Flow Rate 0 Laboratory Tests Test 06/17/25 20:31 06/17/25 22:31 White Blood Count 13.7 H Red Blood Count 5.06 Hemoglobin 14.0 Hematocrit 44.2 Mean Corpuscular Volume 87.3 Mean Corpuscular Hemoglobin 27.7 Mean Corpuscular Hemoglobin Concent 31.8 L Red Cell Distribution Width 17.5 H Platelet Count 287 Mean Platelet Volume 8.2 Neutrophils (%) (Auto) 85.4 H Lymphocytes (%) (Auto) 8.7 L Monocytes (%) (Auto) 4.9 Eosinophils (%) (Auto) 0.4 Basophils (%) (Auto) 0.6 Neutrophils # (Auto) 11.7 H Lymphocytes # (Auto) 1.2 Monocytes # (Auto) 0.7 Eosinophils # (Auto) 0.1 Basophils # (Auto) 0.1 CBC Comment Sodium Level 134 L Potassium Level 4.3 Chloride Level 98 L Carbon Dioxide Level 26.8 Anion Gap 9 Blood Urea Nitrogen 18 Creatinine 1.62 H Estimated GFR/1.73 m2 41 BUN/Creatinine Ratio 11.1 Glucose Level 166 H Calcium Level 8.7 Troponin I High Sensitivity 25 22 Pro-B-Type Natriuretic Peptide 13513 H Albumin 3.8 Chemistry Comments Troponin I High Sens Percent Delta 12 Troponin I Hi Sens Absolute Change -3 EKG/XRAY/CT/US/VASC/MRI EKG : Additional Comment EKG interpreted by myself shows time of 2021, rate 85, atrial fibrillation, right axis deviation, nonspecific ST-T changes. Chest X-Ray : Additional Comments Exam: CHEST,SINGLE VIEW EXAM: DI CHEST,SINGLE VIEW HISTORY: CP TECHNIQUE: 1 view of the chest COMPARISON: DI CHEST,SINGLE VIEW on DOS: 06/05/25 FINDINGS/IMPRESSION: LUNGS: No pleural effusion, consolidation, or pneumothorax. MEDIASTINUM: Unremarkable. BONES: No acute osseous abnormality. OTHER: None. Medical Decision Making Additional information obtaine: old records Findings Patient presents to the emergency room for evaluation of chest pain. Differentials include but are not limited to ACS pulmonary embolism aortic pathology reflux musculoskeletal pain. Positive response to GI cocktail. Troponins negative. Patient does have an elevated heart score and this was discussed with the patient and after offering admission and discussing risks patient would prefer to follow up on outpatient basis. ER precautions discussed Heart Score: 4 Differential Dx:Considerations: Include: angina, aortic dissection, chest wall pain, cholelithiasis, CHF, costochondritis, esophageal reflux/spasm, gastritis, herpes zoster, myocardial infarction, pericarditis, pleuritis, pancreatitis, pneumonia, pneumothorax, pulmonary embolus, other Departure Disposition: 01 HOME / SELF CARE / HOMELESS Impression: Primary Impression: Chest pain Condition: Improved Discharge Instructions: Nonspecific Chest Pain, Adult Referrals: NO PRIMARY CARE PROVIDER (PCP) Signature Scribe Signature: No scribe Attestation: The note accurately reflects work and decisions made by me.Silver Diaz MD 06/17/25 23:48 SILVER DIAZ MD Jun 17, 2025 22:45
[2025-06-17] MEDS: ondansetron 4mg rapidly disintigrating tab PO ONE (23:06)
[2025-06-17] MEDS: mag hydrox/Alum hydrox/simeth 30ml oral suspension PO ONE (23:06)
[2025-06-17] MEDS: LIDOcaine 2% Viscous 15ml cup MM ONE (23:06)
[2025-06-17 23:13] VITALS: BP 112/70; PULSE 82; RESP 15; O2SAT 100
[2025-06-18 00:02] VITALS: TEMP 98.5
--- NOTE | 2025-06-18 06:12 | ELECTROCARDIOGRAPH REPORT ---
[facility] Test Date: 2025-06-17 Test Time: 20:22:46 Pat Name: JONAS BAUER Department: EMERGENCY ROOM Room: Gender: M Senior Cytotechnologist: AISHA : [id number] Requested By: SILVER ROMAN Order Number: [id number] Reading MD: Measurements Intervals [place] Rate: 85 P: 0 FL: 0 QRS: 121 QRSD: 101 T: -21 QT: 393 QTc: 468 Interpretive Statements Atrial fibrillation Right axis deviation Borderline repolarization abnormality Please click the below link to view image of tracing.
== END 2025-06-18 00:03 | disposition home or self-care (01) ==
LOC: ER 20:18
DX: R07.9 Chest pain, unspecified (principal); E11.9 Type 2 diabetes mellitus without complications; I25.10 Atherosclerotic heart disease of native coronary artery without angina pectoris; I48.91 Unspecified atrial fibrillation; I50.9 Heart failure, unspecified; Z79.01 Long term (current) use of anticoagulants; Z88.8 Allergy status to other drugs, medicaments and biological substances; Z95.1 Presence of aortocoronary bypass graft; Z79.899 Other long term (current) drug therapy
CPT/HCPCS: 36415; 71045; 80048; 83880; 84484; 85025; 93005; 99285